=== PATIENT | female | born 1960 | race Caucasian/White ===

== ENCOUNTER → 2018-03-02 09:51 | Outpatient (CLI) | payer MEDICARE, OTHER, SELFPAY ==
[2018-03-02 10:37] LABS: Appearance Urine UA CLEAR; Bilirubin Urine UA NEGATIVE (NEGATIVE); Color Urine UA YELLOW; Glucose Urine UA NEGATIVE (Normal); Ketones Urine UA NEGATIVE (NEGATIVE); Leukocyte Esterase Urine UA NEGATIVE (NEGATIVE); Nitrite Urine UA Negative (Negative); Occult Blood Urine UA NEGATIVE (Negative); Protein Urine UA NEGATIVE (Negative); Urobilinogen Urine UA 0.2 E.U./dL (0.2)
[2018-03-02 13:07] LABS: Add Manual Diff / Slide Review NO; Basophils Percent Auto 1.2 % (0-2); Eosinophils Percent Auto 6.2 % (2-4); Hematocrit 38.5 % (36-46); Hemoglobin 12.4 g/dL (12.0-16.0); Lymphocytes Percent Auto 34.2 % (25-40); Mean Corpuscular HGB Conc 32.2 % (30-36); Mean Corpuscular Hemoglobin 26.5 PG (26-34); Mean Corpuscular Volume 82.1 fL (80-100); Monocytes Percent Auto 6.1 % (3-14); Neutrophils Absolute Auto 4200 /uL (3000-5900); Neutrophils Percent Auto 52.3 % (50-75); Platelet Count 337 X10^3/uL (150-400); Red Cell Distribution Width 14.2 % (11.6-14.8)
[2018-03-02 13:18] LABS: Hemoglobin A1C% w Est Avg Glu 6.1 % (4.0-6.0)
[2018-03-02 13:36] LABS: Alanine Aminotransferase 23 IU/L (9-52); Albumin 4.1 g/dL (3.5-5.0); Albumin Globulin Ratio 1.4 (1.0-2.8); Alkaline Phosphatase 60 U/L (38-126); Aspartate Aminotransferase 19 IU/L (14-36); BUN Creatinine Ratio 22.9 (6-22); Bilirubin Total 0.5 mg/dL (0.2-1.3); Blood Urea Nitrogen 16 mg/dL (7-17); Calcium 9.2 mg/dL (8.4-10.2); Carbon Dioxide 31 mmol/L (22-32); Chloride 97 mmol/L (98-107); Cholesterol 234 mg/dL (140-199); Estimated Glomerular Filt Rate > 60.0 mL/min (>60); Globulin 2.9 g/dL (1.7-4.1); Glucose 86 mg/dL (70-100); HDL Cholesterol 40 mg/dL (40-60); HEMOLYSIS < 15 (0-50); LDL Cholesterol Calculated 136 mg/dL (<100); Potassium 3.7 mmol/L (3.4-5.1); Sodium 138 mmol/L (137-145); Triglycerides 288 mg/dL (35-150)
== END ==
PROVIDERS: PCP Family Medicine; Visit Provider Nurse Practitioner Family
DX: E66.01 Morbid (severe) obesity due to excess calories (principal); I10 Essential (primary) hypertension; N39.0 Urinary tract infection, site not specified; R00.2 Palpitations; R07.89 Other chest pain
CPT/HCPCS: 36415; 80053; 80061; 81003; 83036; 84443; 85025

== ENCOUNTER 2018-03-03 12:54 | Emergency (ER) | payer MEDICARE, OTHER, SELFPAY ==
--- NOTE | 2018-03-03 13:00 | DI.RAD.S_ITS ---
PROCEDURE: XR CHEST 1V INDICATIONS: chest pain TECHNIQUE: One view of the chest was acquired. COMPARISON: [facility], , CHEST 2 VIEW, 12/14/2015, 15:22. FINDINGS: Surgical changes and devices: None. Lungs and pleura: No pleural effusions or pneumothorax. Lungs are clear. Mediastinum: Mediastinal contours appear normal. Heart size is normal. Bones and chest wall: No suspicious bony lesions. Bilateral degenerative a.c. joint disease. Overlying soft tissues appear unremarkable. IMPRESSION: Normal low volume exam Dictated by: Rohan Fernández M.D. on 03/03/2018 at 13:31 Approved by: Rohan Fernández M.D. on 03/03/2018 at 13:32
[2018-03-03 13:03] VITALS: BP 141/73; PULSE 88; RESP 17; TEMP 36.6; O2SAT 97
[2018-03-03 13:16] LABS: Add Manual Diff / Slide Review NO; Basophils Percent Auto 1.2 % (0-2); Eosinophils Percent Auto 4.7 % (2-4); Hematocrit 38.2 % (36-46); Hemoglobin 12.7 g/dL (12.0-16.0); Lymphocytes Percent Auto 31.2 % (25-40); Mean Corpuscular HGB Conc 33.3 % (30-36); Mean Corpuscular Hemoglobin 27.3 PG (26-34); Mean Corpuscular Volume 82.1 fL (80-100); Monocytes Percent Auto 3.3 % (3-14); Neutrophils Absolute Auto 5000 /uL (3000-5900); Neutrophils Percent Auto 59.6 % (50-75); Platelet Count 354 X10^3/uL (150-400); Red Blood Cell Count 4.65 X10^6/uL (4.0-5.2); Red Cell Distribution Width 14.1 % (11.6-14.8); White Blood Cell Count 8.5 X10^3/uL (4.5-11.0)
--- NOTE | 2018-03-03 13:16 | PC.NURSE ---
chest pressure, began today during appt for halter monitor r/t episodes of rapid heart rate, reports chest pressure was bad for approx 10 min, at time of exam pt states very very little chest pressure, normal sinus on monitor, also reports headache today that began prior to chest pain, nausea, denies numbness/tingling/trauma/cough/coa or other illness
[2018-03-03 13:29] LABS: Alanine Aminotransferase 20 IU/L (9-52); Albumin 4.4 g/dL (3.5-5.0); Albumin Globulin Ratio 1.6 (1.0-2.8); Alkaline Phosphatase 60 U/L (38-126); Aspartate Aminotransferase 21 IU/L (14-36); BUN Creatinine Ratio 22.9 (6-22); Bilirubin Total 0.4 mg/dL (0.2-1.3); Blood Urea Nitrogen 16 mg/dL (7-17); Calcium 9.3 mg/dL (8.4-10.2); Carbon Dioxide 28 mmol/L (22-32); Chloride 100 mmol/L (98-107); Creatine Kinase 44 U/L (30-135); Estimated Glomerular Filt Rate > 60.0 mL/min (>60); Globulin 2.8 g/dL (1.7-4.1); Glucose 154 mg/dL (70-100); HEMOLYSIS < 15 (0-50); Lipase 39 U/L (23-300); Potassium 3.9 mmol/L (3.4-5.1); Sodium 139 mmol/L (137-145); Total Protein 7.2 g/dL (6.3-8.2)
[2018-03-03 13:40] LABS: Troponin I < 0.012 ng/mL (0.01-0.034)
[2018-03-03 13:50] LABS: D Dimer < 200 ng/mL (<230)
--- NOTE | 2018-03-03 14:53 | ED.HA ---
HPI - Headache General Chief Complaint: Chest Pain Stated Complaint: CHEST PAIN AND HEAD ACHES Time Seen by Provider: 03/03/18 13:26 Source: patient Mode of arrival: ambulatory Limitations: no limitations History of Present Illness HPI Narrative: Patient states she has had a headache for about the past 2 days. She states in some ways this is similar to her migraine headaches, except the pain goes straight down through the top of her head to her neck. However she has been able to move her neck without difficulty. Patient denies fevers or chills. She states she has been nauseated and vomiting as is typical for her when she has a migraine. Patient denies head trauma recently. She states normally she takes Excedrin and drinks a Coca Cola, and this helps her headaches, but it has not helped this time. MD Complaint: headache Onset (ago): day(s) (2) Onset description: gradual Location: other (Global) Severity: moderate Severity scale (1-10): 6 Quality: throbbing, constant, similar to previous headaches and different than previous headaches Relieving factors: nothing Exacerbating factors: light Context: occurred at rest Associated symptoms: nausea, vomiting and other (No neck stiffness or fever. Patient does state that her lupus was acting up a couple of weeks ago, and she had a fever at that time, but this is resolved some days ago.) Treatments prior to arrival: acetaminophen Related Data Home Medications Medication Instructions Recorded Confirmed etanercept [Enbrel] 50 mg SC QWK #0 12/30/11 03/02/18 Previous Rx's Medication Instructions Recorded hydrochlorothiazide 25 mg PO QDAY #90 tab 07/28/17 Lancets 0 dev SEE INSTRUCTIONS #100 07/30/17 albuterol sulfate [Ventolin HFA] 0 INH Q4H #8 gm 07/30/17 esomeprazole magnesium [Nexium] 40 mg PO QDAY@0600 #90 cap 07/30/17 metformin 1,000 mg PO BID #180 tab 07/30/17 Disabled Parking Permit ea #1 08/07/17 metoprolol succinate 50 mg PO BID #180 tab 09/15/17 Glucose: Test Strips 0 str SEE INSTRUCTIONS #100 str 09/17/17 ibuprofen 600 mg PO TID #90 tab 09/25/17 loratadine [Claritin] 10 mg PO QDAY #90 tab 09/25/17 citalopram 20 mg PO QDAY #90 tab 10/07/17 clobetasol 0.05 % TOPICAL QWEEK #50 ml 10/07/17 duloxetine [Cymbalta] 90 mg PO QDAY #270 cap 10/07/17 estradiol [Vagifem] 10 mcg VG SEE INSTRUCTIONS #20 tab 10/16/17 cyclobenzaprine 0 PO TID #45 tab 11/11/17 hydrocodone 5 mg-acetaminophen 325 See Label Instructions PO Q6HP PRN 12/22/17 mg tablet #60 tab gabapentin 300 mg capsule 300 mg PO TID #90 cap 01/28/18 topiramate 25 mg PO QDAY #60 tab 01/28/18 VITAMIN D (Vitamin D2) 50,000 units PO QWEEK #8 cap 02/03/18 CPAP Supplies #1 ea 02/11/18 Allergies Allergy/AdvReac Type Severity Reaction Status Date / Time codeine [CODEINE] Allergy Mild Rash Unverified 03/02/18 09:05 CAT SCAN DYE Allergy Severe ANAPHYLAXIS, Uncoded 03/02/18 09:05 OK IF BENADRYL FIRST Pain Contract Allergy Unknown Uncoded 03/02/18 09:05 Review of Systems Review of Systems All systems reviewed & are unremarkable except as noted in HPI and below Constitutional Denies chills, Denies fever(s), Denies lethargy and Denies weakness Eyes Denies change in vision, Denies eye discharge, Denies irritation and Denies loss of vision ENT Ears, Nose, Mouth, and Throat: Denies change in voice, Denies neck pain and Denies sore throat Cardiovascular Denies chest pain, Denies irregular heart rhythm, Denies lightheadedness, Denies palpitations, Denies dyspnea, Denies dyspnea on exertion and Denies orthopnea Respiratory Denies cough, Denies dyspnea, Denies dyspnea on exertion and Denies wheezing Gastrointestinal Gastrointestinal: Denies abdominal pain, Denies change in bowel habits, Denies diarrhea, Denies nausea and Denies vomiting Genitourinary Denies hematuria, Denies flank pain, Denies urinary incontinence and Denies urinary urgency Musculoskeletal Denies neck pain Integumentary/Breasts Denies pruritus, Denies erythema, Denies rash and Denies wounds Neurologic Reports system reviewed and no additional complaints, except as docu, Denies confusion, Denies loss of vision and Denies weakness Comments: Psychiatric Denies anxiety, Denies confusion, Denies depression, Denies homicidal ideation and Denies suicidal ideation Endocrine Denies palpitations Hematologic/Lymphatic Denies easy bruising Allergic/Immunologic Denies wheezing PFSH Social History Smoking Status: Former smoker Exam Initial Vital Signs Initial Vital Signs: Vital Signs Temperature 97.8 F 03/03/18 13:03 Pulse Rate 88 03/03/18 13:03 Respiratory Rate 17 03/03/18 13:03 Blood Pressure 141/73 H 03/03/18 13:03 Pulse Oximetry 97 03/03/18 13:03 Const General: cooperative and well developed Nutritional Appearance: well nourished Orientation: alert, awake, oriented x3 and not confused HENMT Head: normocephalic and atraumatic Ears: external ears normal and TM's normal bilaterally Nose: external nose normal and No nasal discharge Face and sinus: sinuses nontender, face symmetric, no sinus tenderness and No dry mucous membranes Mouth: oral mucosae normal and moist mucous membranes Teeth and gingiva: dentition normal Throat: tonsils normal and uvula midline Eyes General: appearance normal, both eyes and all related structures Eyelids: eyelids normal Conjunctivae: conjunctivae normal Sclera: sclerae normal Pupils: PERRL EOM: EOM intact bilaterally Neck Neck: normal visual inspection, trachea midline, No lymphadenopathy, No midline deformity and No JVD Lymphatic: No lymphedema Other: Patient moves her neck without difficulty through full range of motion. Chest Chest: normal inspection of the chest Resp Effort & Inspection: normal respiratory effort, able to speak in complete sentences, no respiratory distress and no use of accessory muscles Auscultation: clear to auscultation bilaterally, no rales, no rhonchi and no wheezes Cardio Rate: regular rate Rhythm: regular rhythm Heart Sounds: no click, no gallops, no murmurs and no rubs Pulses: normal peripheral pulses GI Inspection: non-distended Palpation: soft, no hepatosplenomegaly, No guarding, No pulsatile mass and No tender Auscultation: normal bowel sounds Back/Spine/Pelvis Back: No CVA tenderness Cervical Spine: cervical ROM normal and No pain with cervical ROM Thoracic/Lumbar Spine: thoracic and lumbar spine normal to inspection Skin General: no rashes or lesions noted, No jaundice and No petechiae Neuro General: alert, oriented x3, gait normal and no focal motor deficits Speech: speech normal Extrem General: full ROM, no clubbing, cyanosis or edema, no pedal edema and no calf tenderness Psych Appearance: well kempt Mental Status: mental status grossly normal Attitude: cooperative Thought Content: normal and suicidality Judgment: judgment good Course Orders Ordered: Discontinued Medications Diphenhydramine HCl (Benadryl) 25 mg IV NOW ONE Stop: 03/03/18 14:58 Last Admin: 03/03/18 15:11 Dose: 25 mg Sodium Chloride (Normal Saline 0.9%) 1,000 mls @ 1,000 mls/hr IV BOLUS ONE Stop: 03/03/18 15:59 Last Infusion: 03/03/18 16:56 Dose: 0 mls/hr Infusion: 03/03/18 15:43 Dose: 1,000 mls/hr Infusion: 03/03/18 15:17 Dose: 0 mls/hr Admin: 03/03/18 15:12 Dose: 1,000 mls/hr Ketorolac Tromethamine (Toradol) 30 mg IV NOW ONE Stop: 03/03/18 14:58 Last Admin: 03/03/18 15:11 Dose: 30 mg Metoclopramide HCl (Reglan) 10 mg IV NOW ONE Stop: 03/03/18 14:58 Last Admin: 03/03/18 15:11 Dose: 10 mg Vital Signs - 8 hr 03/03/18 13:03 Temperature 97.8 F Pulse Rate 88 Respiratory Rate 17 Blood Pressure [Right Arm] 141/73 H Pulse Oximetry 97 MDM - Headache Medical Records Attestation: I reviewed the patient's medical records. Lab Data Attestation: I reviewed the patient's lab results. Result diagrams: 03/03/18 13:09 03/03/18 13:09 Lab Results 03/03/18 03/03/18 03/03/18 Range/Units 13: 13:09 13:09 WBC 8.5 (4.5-11.0) X10^3/uL RBC 4.65 (4.0-5.2) X10^6/uL Hgb 12.7 (12.0-16.0) g/dL Hct 38.2 (36-46) % MCV 82.1 (80-100) fL MCH 27.3 (26-34) PG MCHC 33.3 (30-36) % RDW 14.1 (11.6-14.8) % Plt Count 354 (150-400) X10^3/uL Neut % (Auto) 59.6 (50-75) % Lymph % (Auto) 31.2 (25-40) % [place] % (Auto) 3.3 (3-14) % Eos % (Auto) 4.7 H (2-4) % Baso % (Auto) 1.2 (0-2) % Neut # (Auto) 5000 (7072-0962) /uL D-Dimer < 200 (<230) ng/mL Sodium 139 (137-145) mmol/L Potassium 3.9 (3.4-5.1) mmol/L Chloride 100 (98-107) mmol/L Carbon Dioxide 28 (22-32) mmol/L BUN 16 (7-17) mg/dL Creatinine 0.70 (0.52-1.04) mg/dL Estimated GFR > 60.0 (>60) mL/min BUN/Creatinine Ratio 22.9 H (6-22) Glucose 154 H (70-100) mg/dL Calcium 9.3 (8.4-10.2) mg/dL Total Bilirubin 0.4 (0.2-1.3) mg/dL AST 21 (14-36) IU/L ALT 20 (9-52) IU/L Alkaline Phosphatase 60 (38-126) U/L Total Creatine Kinase 44 (30-135) U/L Troponin I < 0.012 (0.01-0.034) ng/mL Total Protein 7.2 (6.3-8.2) g/dL Albumin 4.4 (3.5-5.0) g/dL Globulin 2.8 (1.7-4.1) g/dL Albumin/Globulin Ratio 1.6 (1.0-2.8) Lipase 39 (23-300) U/L Imaging Data CT scan - head: Attestation: I personally reviewed and interpreted this imaging study as follows: My impression: No acute disease. Radiologist's impression: COMPARISON: Merged With [facility], CT, HEAD WITHOUT CONTRAST, 03/27/2017, 15:18. Merged With [facility], MR, BRAIN W&WO CONTRAST, 07/13/2013, 9:35. Merged With [facility], CT, HEAD WITHOUT CONTRAST, 06/22/2013, 10:11. Merged With [facility], MR, BRAIN W&WO CONTRAST, 03/12/2012, 10:59. FINDINGS: Image quality: Excellent. CSF spaces: Basal cisterns are patent. No extra-axial fluid collections. Ventricles are normal in size and shape. Brain: No midline shift. No intracranial masses or hemorrhage. Posey-white matter interface is normal. Skull and face: Calvarium and visualized facial bones are intact, without suspicious lesions. Sinuses: Visualized sinuses and mastoids are clear. IMPRESSION: No acute intracranial disease process. Dictated by: Malgorzata Evans MD, PhD on 03/03/2018 at 14:29 Approved by: Malgorzata Evans MD, PhD on 03/03/2018 at 14:31 Chest x-ray: Attestation: I personally reviewed and interpreted this imaging study as follows: My impression: Negative Radiologist's impression: PROCEDURE: XR CHEST 1V INDICATIONS: chest pain TECHNIQUE: One view of the chest was acquired. COMPARISON: Merged With [facility], , CHEST 2 VIEW, 12/14/2015, 15:22. FINDINGS: Surgical changes and devices: None. Lungs and pleura: No pleural effusions or pneumothorax. Lungs are clear. Mediastinum: Mediastinal contours appear normal. Heart size is normal. Bones and chest wall: No suspicious bony lesions. Bilateral degenerative a.c. joint disease. Overlying soft tissues appear unremarkable. IMPRESSION: Normal low volume exam Dictated by: Rohan Fernández M.D. on 03/03/2018 at 13:31 Approved by: Rohan Fernández M.D. on 03/03/2018 at 13:32 ECG Data Attestation: I personally reviewed and interpreted this ECG as follows: Prior ECG tracings: not available for review Interpretation: Twelve lead EKG performed as follows: Date and time March 03, 2018 at 1:01 p.m. Regular ventricular rhythm with a rate of 84 beats per minute SD Interval 168 milliseconds QRS duration 94 millisecond QTC interval 425 milliseconds [place] normal Nonspecific T-wave abnormality Interpretation: Normal sinus rhythm with nonspecific T-wave abnormality MDM Narrative Medical decision making narrative: The patient remained stable throughout her stay in the emergency department. Workup was negative, and patient was found to be feeling better after symptomatic treatment. The patient was deemed stable for discharge home. We have discussed the usual indications for return. Discharge Plan Departure Patient Disposition: Home, Self-Care Clinical Impression: Migraine headache Discharge Date/Time: 03/03/18 17:35 Interventions: ED Discharge Assessment Last Done: 03/03/18 17:35 Instructions: DI for Migraine Activity Restrictions/Additional Instructions: Your head CT looks good. There is no evidence of any abnormality in your brain. You are most likely experiencing a migraine variant. Prescriptions: No Action etanercept [Enbrel] 50 MG/1 ML syringe 50 mg SC QWK Qty: 0 RF: 0 hydrochlorothiazide 25 MG tablet 25 mg PO QDAY Qty: 90 RF: 2 metformin 1,000 MG tablet 1,000 mg PO BID Qty: 180 RF: 3 esomeprazole magnesium [Nexium] 40 MG capsule,delayed release(DR/EC) 40 mg PO QDAY@0600 Qty: 90 RF: 2 albuterol sulfate [Ventolin HFA] 90 MCG/PUFF HFA aerosol inhaler INH Q4H Qty: 8 RF: 1 Lancets SEE INSTRUCTIONS Qty: 100 RF: PRN Disabled Parking Permit Qty: 1 RF: 0 metoprolol succinate 50 MG tablet extended release 24 hr 50 mg PO BID Qty: 180 RF: 3 Glucose: Test Strips SEE INSTRUCTIONS Qty: 100 RF: PRN ibuprofen 600 MG tablet 600 mg PO TID Qty: 90 RF: 2 loratadine [Claritin] 10 MG tablet 10 mg PO QDAY Qty: 90 RF: 3 citalopram 20 MG tablet 20 mg PO QDAY Qty: 90 RF: 3 duloxetine [Cymbalta] 30 MG capsule,delayed release(DR/EC) 90 mg PO QDAY Qty: 270 RF: 3 clobetasol 0.05 % solution 0.05 % Topical QWEEK Qty: 50 RF: 3 estradiol [Vagifem] 10 MCG tablet 10 mcg VG SEE INSTRUCTIONS Qty: 20 RF: 3 cyclobenzaprine 5 MG tablet PO TID Qty: 45 RF: 0 hydrocodone-acetaminophen 5-325 mg tablet See Label Instructions PO Q6HP PRN (Reason: pain) Qty: 60 RF: 0 gabapentin [Neurontin] 300 mg capsule 300 mg PO TID Qty: 90 RF: 0 topiramate 25 mg tablet 25 mg PO QDAY Qty: 60 RF: 0 VITAMIN D (Vitamin D2) 50,000 units PO QWEEK Qty: 8 RF: 3 CPAP Supplies Qty: 1 RF: 3 Referrals: Shadia Maguire DO [Primary Care Provider] - (Please follow up as needed with your primary care physician.)
--- NOTE | 2018-03-03 15:00 | DI.CT.S_ITS ---
PROCEDURE: CT HEAD/BRAIN WO CON INDICATIONS: headache TECHNIQUE: Noncontrast 4.5 mm thick angled axial sections acquired from the foramen magnum to the vertex, with coronal and sagittal reformats. For radiation dose reduction, the following was used: automated exposure control, adjustment of mA and/or kV according to patient size. COMPARISON: [facility], CT, HEAD WITHOUT CONTRAST, 03/27/2017, 15:18. [facility], MR, BRAIN W&WO CONTRAST, 07/13/2013, 9:35. [facility], CT, HEAD WITHOUT CONTRAST, 06/22/2013, 10:11. [facility], MR, BRAIN W&WO CONTRAST, 03/12/2012, 10:59. FINDINGS: Image quality: Excellent. CSF spaces: Basal cisterns are patent. No extra-axial fluid collections. Ventricles are normal in size and shape. Brain: No midline shift. No intracranial masses or hemorrhage. [place]-white matter interface is normal. Skull and face: Calvarium and visualized facial bones are intact, without suspicious lesions. Sinuses: Visualized sinuses and mastoids are clear. IMPRESSION: No acute intracranial disease process. Dictated by: Malgorzata Evans MD, PhD on 03/03/2018 at 14:29 Approved by: Malgorzata Evans MD, PhD on 03/03/2018 at 14:31
[2018-03-03] MEDS: diphenhydrAMINE 50 MG/ML VIAL 25 MG IV (15:11)
[2018-03-03] MEDS: METOCLOPRAMIDE 10 MG/2 ML INJ IV (15:11)
[2018-03-03] MEDS: KETOROLAC 60 MG/2 ML VIAL 30 MG IV (15:11)
[2018-03-03] MEDS: SODIUM CHLORIDE 0.9% 1,000 ML 1000 ML IV (15:12)
[2018-03-03 15:37] VITALS: BP 136/71; PULSE 74; RESP 18; O2SAT 97
[2018-03-03 17:12] VITALS: BP 110/60; PULSE 78; RESP 18; O2SAT 98
== END 2018-03-03 17:35 | disposition home or self-care (01) ==
PROVIDERS: Emergency Provider Emergency Medicine; Family Provider Family Medicine; PCP Family Medicine
DX: G43.909 Migraine, unspecified, not intractable, without status migrainosus (principal)
CPT/HCPCS: 36591; 70450; 71045; 80053; 82550; 82553; 83690; 84484; 85025; 85379; 93005; 93010; 96361; 96374; 96375; 99283; 99285; J1200; J1885; J2765

== ENCOUNTER → 2018-04-16 09:08 | Outpatient (CLI) | payer MEDICARE, OTHER, SELFPAY ==
--- NOTE | 2018-04-16 09:15 | DI.RAD.S_ITS ---
PROCEDURE: XR CHEST 2V INDICATIONS: COUGH TECHNIQUE: 2 views of the chest were acquired. COMPARISON: [facility], CHEST 2 VIEW, 12/14/2015, 15:22. [facility], CHEST 2 VIEW, 11/29/2015, 15:13. [facility], CHEST 2 VIEW, 06/15/2015, 11:58. [facility], XR CHEST 1V, 03/03/2018, 13:13. FINDINGS: Surgical changes and devices: Cholecystectomy clips are seen. Lungs and pleura: An incomplete inspiratory result is noted, causing a crowded appearance to the lung markings. No focal infiltrates are seen. No pneumothorax or significant pleural effusions are seen. Mediastinum: Mediastinal contours are normal. Heart size is normal. Bones and chest wall: No suspicious bony abnormalities. Soft tissues appear unremarkable. IMPRESSION: No focal infiltrates are detected. Dictated by: Fredy Young M.D. on 04/16/2018 at 10:24 Approved by: Fredy Young M.D. on 04/16/2018 at 10:25
== END ==
PROVIDERS: Family Provider Family Medicine; PCP Family Medicine; Visit Provider Nurse Practitioner Family
DX: R06.2 Wheezing (principal); R05 Cough
CPT/HCPCS: 71046

== ENCOUNTER → 2018-04-30 15:34 | Outpatient (CLI) | payer MEDICARE, OTHER, SELFPAY ==
[2018-04-30 16:01] LABS: Add Manual Diff / Slide Review NO; Basophils Percent Auto 0.4 % (0-2); Eosinophils Percent Auto 6.3 % (2-4); Hematocrit 39.3 % (36-46); Hemoglobin 12.8 g/dL (12.0-16.0); Lymphocytes Percent Auto 33.3 % (25-40); Mean Corpuscular HGB Conc 32.6 % (30-36); Mean Corpuscular Hemoglobin 26.7 PG (26-34); Mean Corpuscular Volume 81.8 fL (80-100); Monocytes Percent Auto 5.2 % (3-14); Neutrophils Absolute Auto 4700 /uL (3000-5900); Neutrophils Percent Auto 54.8 % (50-75); Platelet Count 377 X10^3/uL (150-400); Red Cell Distribution Width 14.7 % (11.6-14.8); White Blood Cell Count 8.7 X10^3/uL (4.5-11.0)
[2018-04-30 16:48] LABS: Alanine Aminotransferase 25 IU/L (9-52); Albumin 4.4 g/dL (3.5-5.0); Albumin Globulin Ratio 1.7 (1.0-2.8); Alkaline Phosphatase 57 U/L (38-126); Amylase 30 U/L (30-110); Aspartate Aminotransferase 17 IU/L (14-36); BUN Creatinine Ratio 22.9 (6-22); Bilirubin Total 0.3 mg/dL (0.2-1.3); Blood Urea Nitrogen 16 mg/dL (7-17); Calcium 9.7 mg/dL (8.4-10.2); Carbon Dioxide 29 mmol/L (22-32); Chloride 94 mmol/L (98-107); Estimated Glomerular Filt Rate > 60.0 mL/min (>60); Globulin 2.6 g/dL (1.7-4.1); Glucose 112 mg/dL (70-100); HEMOLYSIS < 15 (0-50); Lipase 64 U/L (23-300); Potassium 4.2 mmol/L (3.4-5.1); Sodium 141 mmol/L (137-145)
== END ==
PROVIDERS: PCP Family Medicine; Visit Provider Family Medicine
DX: R10.9 Unspecified abdominal pain (principal)
CPT/HCPCS: 36415; 80053; 82150; 83690; 85025

== ENCOUNTER → 2018-04-30 15:57 | Outpatient (CLI) | payer MEDICARE, OTHER, SELFPAY ==
--- NOTE | 2018-04-30 16:01 | DI.CT.S_ITS ---
PROCEDURE: CT ABDOMEN PELVIS WO CON INDICATIONS: BILATERAL LOWER ABDOMINAL PAIN TECHNIQUE: After the administration of oral contrast, 5 mm thick sections acquired from the diaphragms to the symphysis. 5 mm coronal and sagittal reformats were performed. For radiation dose reduction, the following was used: automated exposure control, adjustment of mA and/or kV according to patient size. COMPARISON: [facility], CT, ABDOMEN/PELVIS WITHOUT CONTRAST, 08/15/2009, 14:31. FINDINGS: Image quality: Excellent. ABDOMEN: Lung bases: Lung bases are clear. Heart size is normal. Solid organs: Liver is normal in size. Diffuse fatty liver infiltration is noted. Gallbladder has been removed. Pancreas is normal in size. Spleen is normal in size. No adrenal nodules. Both kidneys are normal in size, without hydronephrosis or nephrolithiasis. Peritoneum and bowel: Bowel loops demonstrate normal wall thickness and caliber. No free fluid or air. The appendix is normal. No significant sigmoid colon abnormality is seen. There is a moderate amount of stool seen throughout the colon. Nodes and vessels: No retroperitoneal or mesenteric adenopathy by size criteria. Aorta and inferior vena cava are normal in size. Miscellaneous: A mild periumbilical hernia is seen, containing fat. PELVIS: Genitourinary: Bladder wall thickness is normal. This patient is status post hysterectomy. No adnexal masses are seen. Miscellaneous: No inguinal hernias or adenopathy. Bilateral pelvic clips are seen. Bones: No suspicious bony lesions. No vertebral body compression fractures. Degenerative changes are seen throughout, which are most prominent involving the lower lumbar spine. IMPRESSION: There is a moderate amount of stool seen within the colon. Please correlate with an underlying history of constipation. Normal appendix. No sigmoid abnormality is seen. Incidental note is made of: Cholecystectomy Fatty liver infiltration Fat-containing periumbilical hernia Lower lumbar spine degenerative change Note: Case discussed by telephone with Dr. Maguire at 5:26 PM [place] time on April 30, 2018. Dictated by: Fredy Young M.D. on 04/30/2018 at 16:19 Approved by: Fredy Young M.D. on 04/30/2018 at 16:27
== END ==
PROVIDERS: Family Provider Family Medicine; PCP Family Medicine; Visit Provider Family Medicine
DX: R10.30 Lower abdominal pain, unspecified (principal); R30.0 Dysuria
CPT/HCPCS: 36415; 74176; 80053; 82150; 83690; 85025

== ENCOUNTER → 2018-07-02 15:38 | Outpatient (CLI) | payer MEDICARE, OTHER, SELFPAY ==
[2018-07-02 16:26] LABS: Hemoglobin A1C% w Est Avg Glu 6.1 % (4.0-6.0)
== END ==
PROVIDERS: PCP Family Medicine; Visit Provider Family Medicine
DX: E11.9 Type 2 diabetes mellitus without complications (principal)
CPT/HCPCS: 36415; 83036

== ENCOUNTER → 2019-01-05 11:53 | Outpatient (CLI) | payer MEDICARE, OTHER, SELFPAY ==
[2019-01-05 13:47] LABS: Blood Urea Nitrogen 24 mg/dL (7-17); Calcium 9.5 mg/dL (8.4-10.2); Carbon Dioxide 29 mmol/L (22-32); Chloride 97 mmol/L (98-107); Estimated Glomerular Filt Rate > 60.0 mL/min (>60); Glucose 136 mg/dL (70-100); HEMOLYSIS < 15 (0-50); Sodium 137 mmol/L (137-145)
[2019-01-05 14:00] LABS: Hemoglobin A1C% w Est Avg Glu 5.7 % (4.0-6.0)
== END ==
PROVIDERS: Family Provider Family Medicine; PCP Family Medicine; Visit Provider Family Medicine
DX: E11.9 Type 2 diabetes mellitus without complications (principal); I10 Essential (primary) hypertension
CPT/HCPCS: 36415; 80048; 83036

== ENCOUNTER → 2019-01-31 15:34 | Outpatient (CLI) | payer MEDICARE, OTHER, SELFPAY ==
[2019-01-31 17:12] LABS: Blood Urea Nitrogen 14 mg/dL (7-17); Calcium 9.1 mg/dL (8.4-10.2); Carbon Dioxide 26 mmol/L (22-32); Chloride 104 mmol/L (98-107); Estimated Glomerular Filt Rate > 60.0 mL/min (>60); Glucose 103 mg/dL (70-100); HEMOLYSIS < 15 (0-50); Potassium 4.5 mmol/L (3.4-5.1); Sodium 139 mmol/L (137-145)
[2019-01-31 17:29] LABS: Free T3, Triiodothyronine Free 3.04 pg/mL (2.77-5.27); Free T4, Direct Thyroxine 1.05 ng/dL (0.78-2.19)
[2019-01-31 17:44] LABS: Thyroid Stimulating Hormone 0.76 uIU/mL (0.47-4.68)
== END ==
PROVIDERS: PCP Family Medicine; Visit Provider Family Medicine
DX: E11.9 Type 2 diabetes mellitus without complications (principal); I10 Essential (primary) hypertension; R00.2 Palpitations
CPT/HCPCS: 36415; 80048; 84439; 84443; 84481

== ENCOUNTER 2019-06-28 06:31 | Day surgery (SDC) | payer MEDICARE, OTHER, SELFPAY ==
[2019-06-28 08:00] VITALS: BP 147/82; PULSE 76; RESP 15; TEMP 36.1; O2SAT 96; BMI 42.9
[2019-06-28] MEDS: PROPARACAINE 0.5% OPHTH SOL 2 DROPS EYE-OP (08:10)
[2019-06-28] MEDS: CATARACT EYE COMPOUND (10 DROPS/SYRINGE) 3 DROPS EYE-OP (08:13)
--- NOTE | 2019-06-28 08:47 | PM.PREOP ---
Pre-operative Note Interval Note History & Physical reviewed/Exam performed by Physician: No Changes to H&P: No
--- NOTE | 2019-06-28 08:47 | PM.OP.1 ---
Operative Date/Time/Diagnoses Pre-op diagnosis: Nuclear cataract right eye Procedure & Clinicians Procedure: Cataract Surgery Same procedure as scheduled: Yes Surgeon: Salas Funez Anesthesia Type: MAC +/- and Sedation Operative Notes Procedure in detail: Patient brought to the operating suite. Tetracaine drops placed in the right eye. Patient was prepped and draped in sterile manner. Wire lid speculum was placed in the eye. Betadine drops were placed on the eye. This was irrigated. Lidocaine jelly was placed on the eye. A paracentesis port was created with a side-port blade. 0.1 mL 1% preservative free lidocaine was injected into the anterior chamber. The anterior chamber was deepened with viscoelastic. 2.6 mm keratome was used to create a temporal clear corneal incision. Cystotome and Utrata forceps were used to create continuous tear capsulorrhexis. Balanced salt solution was used to hydro dissect the nucleus. The phacoemulsification handpiece was inserted and the nucleus was removed using the stop and chop technique. The irrigation aspiration handpiece was inserted and the remaining cortex was removed. Anterior chamber was deepened with viscoelastic. An Morris ZCB00 intraocular lens with a power of 10.0 was injected into the capsular bag. Irrigation aspiration handpiece was inserted and the remaining viscoelastic was removed. Incision was hydrated with balanced salt solution and found to be leak free with pressure with Weck-Caroline sponges. 0.1 mL Vigamox injected anterior chamber. 0.3 mL Kenalog 10 mg was injected subconjunctivally. Lid speculum was removed. The patient left the operating room in excellent condition. Complications: none Post-operative Condition: stable Disposition: same day surgery
[2019-06-28] MEDS: PHENYLEPHRINE/LIDOCAINE VIAL (OR) 0.2 ML EYE-OP (09:05)
[2019-06-28] MEDS: MOXIFLOXACIN INJ 5 MG/ML VIAL EYE-OP (09:05)
[2019-06-28] MEDS: CHONDROIDTIN/SOD HYALURONATE 1.05 ML SYRINGE INTRAOCULA (09:06)
[2019-06-28] MEDS: LIDOCAINE JELLY 2% 5 ML 1 APPLIC TOP (09:06)
[2019-06-28] MEDS: TETRACAINE 0.5% OPHTH DROPS 4 ML 2 DROPS EYE-OP (09:06)
[2019-06-28] MEDS: BALANCED SALT IRRIG SOLN NO.2 500 ML, EPINEPHrine 1 MG IRR (09:06)
[2019-06-28] MEDS: TRIAMCINOLONE 50 MG/5 ML VIAL INJ (09:06)
[2019-06-28 09:20] VITALS: BP 144/93; PULSE 76; RESP 16; TEMP 36.5; O2SAT 96
[2019-06-28 09:40] VITALS: BP 142/86; PULSE 80; RESP 16; TEMP 36.3; O2SAT 96
== END 2019-06-28 09:41 | disposition home or self-care (01) ==
PROVIDERS: Family Provider Family Medicine; PCP Family Medicine; Visit Provider Ophthalmology
PROC: (CPT 66984; principal; 2019-06-28 08:45)
DX: H25.11 Age-related nuclear cataract, right eye (principal); E11.9 Type 2 diabetes mellitus without complications; I10 Essential (primary) hypertension; G47.30 Sleep apnea, unspecified
CPT/HCPCS: 66984; J0171; J2250; J2704; J3010; J3301

== ENCOUNTER 2019-07-12 06:53 | Day surgery (SDC) | payer MEDICARE, OTHER, SELFPAY ==
[2019-07-12] MEDS: PROPARACAINE 0.5% OPHTH SOL 2 DROPS EYE-OP (07:10)
[2019-07-12 07:14] VITALS: BP 142/83; PULSE 71; RESP 15; TEMP 36.5; O2SAT 97; BMI 42.2
[2019-07-12 07:27] VITALS: BMI 42.2
[2019-07-12] MEDS: CATARACT EYE COMPOUND (10 DROPS/SYRINGE) 3 DROPS EYE-OP (07:28)
--- NOTE | 2019-07-12 07:46 | PM.PREOP ---
Pre-operative Note Interval Note History & Physical reviewed/Exam performed by Physician: No Changes to H&P: No
--- NOTE | 2019-07-12 07:46 | PM.OP.1 ---
Operative Date/Time/Diagnoses Pre-op diagnosis: Nuclear Cataract Left eye Post-op diagnosis: same Procedure & Clinicians Surgeon: Salas Funez Anesthesia Type: MAC +/- and Sedation Operative Notes Procedure in detail: Patient brought to the operating suite. Tetracaine drops placed in the left eye. Patient was prepped and draped in sterile manner. Wire lid speculum was placed in the eye. Betadine drops were placed on the eye. This was irrigated. Lidocaine jelly was placed on the eye. A paracentesis port was created with a side-port blade. 0.1 mL 1% preservative free lidocaine was injected into the anterior chamber. The anterior chamber was deepened with viscoelastic. 2.6 mm keratome was used to create a temporal clear corneal incision. Cystotome and Utrata forceps were used to create continuous tear capsulorrhexis. Balanced salt solution was used to hydro dissect the nucleus. The phacoemulsification handpiece was inserted and the nucleus was removed using the stop and chop technique. The irrigation aspiration handpiece was inserted and the remaining cortex was removed. Anterior chamber was deepened with viscoelastic. An Morris ZCB00 intraocular lens with a power of 8.0 was injected into the capsular bag. Irrigation aspiration handpiece was inserted and the remaining viscoelastic was removed. Incision was hydrated with balanced salt solution and found to be leak free with pressure with Weck-Caroline sponges. 0.1 mL Vigamox injected anterior chamber. 0.3 mL Kenalog 10 mg was injected subconjunctivally. Lid speculum was removed. The patient left the operating room in excellent condition. Complications: none Post-operative Condition: stable Disposition: same day surgery
[2019-07-12] MEDS: MOXIFLOXACIN INJ 5 MG/ML VIAL EYE-OP (07:51)
[2019-07-12] MEDS: LIDOCAINE JELLY 2% 5 ML 1 APPLIC TOP (07:52)
[2019-07-12] MEDS: PHENYLEPHRINE/LIDOCAINE VIAL (OR) 0.2 ML EYE-OP (07:52)
[2019-07-12] MEDS: TRIAMCINOLONE 50 MG/5 ML VIAL INJ (07:52)
[2019-07-12] MEDS: BALANCED SALT IRRIG SOLN NO.2 500 ML, EPINEPHrine 1 MG IRR (07:53)
[2019-07-12] MEDS: CHONDROIDTIN/SOD HYALURONATE 1.05 ML SYRINGE INTRAOCULA (07:53)
[2019-07-12] MEDS: TETRACAINE 0.5% OPHTH DROPS 4 ML 2 DROPS EYE-OP (07:53)
--- NOTE | 2019-07-12 09:19 | SUR.PHASEII ---
Late entry: Pt c/o pain to L eye and stated she had very poor vision. Dr. Funez informed and examined pt. Stated pt was ok to be discharged. Pt. left soon after and left in stable condition.
[2019-07-12 09:22] VITALS: BP 149/85; PULSE 79; RESP 16; TEMP 36.2; O2SAT 96
== END 2019-07-12 08:45 | disposition home or self-care (01) ==
PROVIDERS: Family Provider Family Medicine; PCP Family Medicine; Visit Provider Ophthalmology
PROC: (CPT 66984; principal; 2019-07-12 08:15)
DX: H25.12 Age-related nuclear cataract, left eye (principal); E11.9 Type 2 diabetes mellitus without complications; I10 Essential (primary) hypertension; G47.30 Sleep apnea, unspecified
CPT/HCPCS: 66984; J0171; J2250; J2704; J3010; J3301

== ENCOUNTER 2019-09-04 23:30 | Emergency (ER) | payer MEDICARE, OTHER, SELFPAY ==
[2019-09-04 23:38] VITALS: PULSE 74; RESP 16; TEMP 37; O2SAT 99; BMI 42.9
--- NOTE | 2019-09-05 | DI.CT.S_ITS ---
PROCEDURE: CT HEAD/BRAIN WO CON INDICATIONS: severe dizziness and headache TECHNIQUE: Noncontrast 4.5 mm thick angled axial sections acquired from the foramen magnum to the vertex, with coronal and sagittal reformats. For radiation dose reduction, the following was used: automated exposure control, adjustment of mA and/or kV according to patient size. COMPARISON: None. FINDINGS: Image quality: Excellent. CSF spaces: Basal cisterns are patent. No extra-axial fluid collections. Ventricles are normal in size and shape. Brain: No midline shift. No intracranial masses or hemorrhage. Posey-white matter interface is normal. Skull and face: Calvarium and visualized facial bones are intact, without suspicious lesions. Sinuses: Visualized sinuses and mastoids are clear. IMPRESSION: No acute intracranial disease process. Dictated by: Malgorzata Evans MD, PhD on 09/05/2019 at 7:15 Approved by: Malgorzata Evans MD, PhD on 09/05/2019 at 7:16
[2019-09-05 00:20] VITALS: BP 120/78
--- NOTE | 2019-09-05 01:10 | DI.CT.S_ITS ---
PROCEDURE: CT ANGIO HEAD AND NECK INDICATIONS: severe headache with vertigo TECHNIQUE: Pre-contrast 4.5 mm thick sections acquired from the foramen magnum to the vertex. After the administration of intravenous contrast, 1 mm thick sections acquired from the aortic arch through the [place] of [place]. Post-contrast 4.5 mm thick sections then re-acquired from the foramen magnum to the vertex. 3-dimensional mvswghv-esmyjhzdh-pnuffchggo (MIP) and/or volume rendering reformats were acquired of the central intracranial vasculature and neck separately. COMPARISON: None. FINDINGS: Image quality: Excellent. BRAIN: CSF spaces: Ventricles are normal in size and shape. Basal cisterns are patent. No extra-axial fluid collections. Brain: No midline shift. No intracranial bleeds or masses. Posey-white matter interface appears intact. Skull and face: Calvarium and facial bones appear intact, without suspicious lesions. Orbits appear normal. Sinuses: Mucosal thickening in the maxillary sinuses bilaterally. Postsurgical changes noted in the paranasal sinuses compatible with prior functional endoscopic sinus surgery. The mastoids are clear. HEAD CT ANGIOGRAPHY: Anterior circulation: Intracranial internal carotid arteries are normal in size and flow. The flow within the paired anterior cerebral arteries is normal and symmetric. The flow within the middle cerebral arteries is normal and symmetric. The anterior communicating artery is seen. No aneurysms are seen. Posterior circulation: Visualized portions of the vertebral arteries demonstrate normal caliber, and join to form a normal appearing basilar artery. Flow within the posterior cerebral arteries is normal and symmetric. No aneurysms are seen. Dural sinuses demonstrate normal postcontrast enhancement. NECK CT ANGIOGRAPHY: Carotid system: The great vessels demonstrate a conventional anatomy as they arise from the aortic arch. The origins of the common carotid arteries appear patent. The common carotid arteries demonstrate normal caliber and courses. The bifurcation regions are both widely patent. The internal carotid arteries demonstrate normal calibers and courses. Posterior circulation: Left posterior cerebral artery arises from the aortic arch. Patient is right vertebral artery dominant. The origins of the vertebral arteries both appear widely patent. The more superior extracranial portions of both vertebral arteries also demonstrate normal courses and calibers. 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 They join to form a normal appearing basilar artery. Soft tissues: Visualized neck soft tissues demonstrate no suspicious abnormalities. Bones: No suspicious bony lesions. Visualized cervical spine appears normally aligned. IMPRESSION: 1. No acute intracranial disease process. 2. No large vessel occlusion, vascular stenosis, vascular dissection or aneurysm. Any quantitative measurements of stenosis were performed using NASCET criteria. Dictated by: Malgorzata Evans MD, PhD on 09/05/2019 at 7:51 Approved by: Malgorzata Evans MD, PhD on 09/05/2019 at 7:58
[2019-09-05 02:04] LABS: Add Manual Diff / Slide Review NO; Basophils Absolute Auto 100 /uL (0-100); Eosinophils Absolute Auto 400 /uL (0-450); Eosinophils Percent Auto 5.6 % (2-4); Hematocrit 36.8 % (36-46); Hemoglobin 12.2 g/dL (12.0-16.0); Lymphocytes Absolute Auto 2600 /uL (1100-4500); Lymphocytes Percent Auto 35.2 % (25-40); Mean Corpuscular HGB Conc 33.2 % (30-36); Mean Corpuscular Volume 81.4 fL (80-100); Monocytes Absolute Auto 500 /uL (0-900); Monocytes Percent Auto 7.2 % (3-14); Neutrophils Absolute Auto 3800 /uL (1500-7000); Platelet Count 336 X10^3/uL (150-400); Red Blood Cell Count 4.52 X10^6/uL (4.0-5.2); Red Cell Distribution Width 14.9 % (11.6-14.8); White Blood Cell Count 7.5 X10^3/uL (4.5-11.0)
[2019-09-05 02:15] LABS: Alanine Aminotransferase 14 IU/L (<35); Albumin 4.1 g/dL (3.5-5.0); Albumin Globulin Ratio 1.3 (1.0-2.8); Alkaline Phosphatase 69 U/L (38-126); Aspartate Aminotransferase 18 IU/L (14-36); BUN Creatinine Ratio 21.7 (6-22); Bilirubin Total 0.3 mg/dL (0.2-1.3); Blood Urea Nitrogen 13 mg/dL (7-17); Calcium 8.9 mg/dL (8.4-10.2); Carbon Dioxide 28 mmol/L (22-32); Chloride 104 mmol/L (98-107); Estimated Glomerular Filt Rate > 60.0 mL/min (>60); Globulin 3.1 g/dL (1.7-4.1); Glucose 99 mg/dL (70-100); HEMOLYSIS < 15 (0-50); Potassium 3.5 mmol/L (3.4-5.1); Sodium 142 mmol/L (137-145); Total Protein 7.2 g/dL (6.3-8.2)
[2019-09-05 02:21] LABS: C-Reactive Protein Quant < 0.5 mg/dL (<1.0)
[2019-09-05 02:26] LABS: Erythrocyte Sedimentation Rate 12 MM/HR (0-20)
[2019-09-05] MEDS: METOCLOPRAMIDE 10 MG/2 ML INJ IV (03:22)
[2019-09-05] MEDS: KETOROLAC 60 MG/2 ML VIAL 30 MG IV (03:22)
[2019-09-05] MEDS: methylPREDNISolone 125 MG/2 ML VIAL IV (03:23)
[2019-09-05] MEDS: diphenhydrAMINE 50 MG/ML VIAL 25 MG IV ×2 (03:23)
[2019-09-05] MEDS: MECLIZINE HCL 12.5 MG TABLET 25 MG PO (03:23)
--- NOTE | 2019-09-05 03:58 | ED_ITS ---
HPI - Dizziness General Chief Complaint: Dizziness Stated Complaint: headaches, spinning when she lays down, nausea Time Seen by Provider: 09/05/19 00:48 Mode of arrival: Ambulatory History of Present Illness HPI Narrative: Chief complaint: Headache associated with vertigo. Chief complaint headache with intermittent spinning vertigo. History of present illness: The patient is a 58-year-old female with a history of migraine headaches. The patient stated that on she developed a headache and that she developed spinning dizziness as though she was on a tilt to will. The symptoms persisted so she came into the emergency department to be further evaluated. She has had nausea with vomiting. She denies any fall or injury. The headache is located in the back of her head. The patient has a history of psoriatic arthritis. She also has a history of hypertension and diabetes mellitus but no asthma or COPD. The patient denies smoking cigarettes. The patient states that often her headaches are located on the right side of her head. And periodically she has an aura of scintillations and flashing lights. This headache came on gradually and was not like her typical headache. She has chronic numbness tingling paresthesias in her hands which has been attributed to her psoriatic arthritis. The patient claims to have central sleep apnea. She denies any change in her vision loss of vision scotomata or diplopia. She denies any ataxia or clumsiness. She just states that changing her head position causes her dizziness to get worse. The discomfort is a dull achy pain. Sometimes it is throbbing. She denies any chest pain cough short ness of breath palpitations irregular heartbeat. She has been intensely nauseous with vomiting but has had no diarrhea no incontinence of urine or stool. Related Data Home Medications Medication Instructions Recorded Confirmed Enbrel 50 mg SC QWK #0 12/30/11 07/21/19 Respironics Dreamstation CPAP #1 ea 02/07/19 07/21/19 cyclobenzaprine 5 mg PO TID PRN 07/12/19 07/21/19 loratadine [Claritin] 10 mg PO QDAY PRN 07/12/19 07/21/19 Previous Rx's Medication Instructions Recorded Lancets 0 dev SEE INSTRUCTIONS #100 07/30/17 Disabled Parking Permit ea #1 08/07/17 Glucose: Test Strips 0 str SEE INSTRUCTIONS #100 str 09/17/17 CPAP Supplies #1 ea 02/11/18 VITAMIN D (Vitamin D2) 50,000 units PO QWEEK #8 cap 07/15/18 cpap & Supplies #1 ea 12/03/18 albuterol sulfate 90 mcg/actuation 1 inhalation INHALATION Q4H #8 gram 02/21/19 aerosol inhaler duloxetine 30 mg capsule,delayed 60 mg PO QDAY #180 cap 02/21/19 release esomeprazole magnesium 40 mg 40 mg PO QDAY@0600 #90 cap 02/21/19 capsule,delayed release gabapentin 100 mg capsule 100 mg PO TID #270 cap 02/21/19 hydrocodone 5 mg-acetaminophen 325 See Rx Instructions PO Q6HP PRN 02/21/19 mg tablet #120 tab ibuprofen 600 mg tablet 600 mg PO TID #270 tab 02/21/19 metformin 1,000 mg tablet 1,000 mg PO BID #180 tab 02/21/19 metoprolol succinate 50 mg 50 mg PO BID #180 tab 02/21/19 tablet,extended release 24 hr nitroglycerin 0.3 mg sublingual 0.3 mg SL Q5-15M PRN #30 tab 04/05/19 tablet clobetasol 0.05 % scalp solution 0.05 % TOPICAL QWEEK #50 ml 06/30/19 lisinopril 2.5 mg tablet 2.5 mg PO DAILY #90 tab 07/01/19 rizatriptan 5 mg disintegrating 5 mg PO ONCE PRN #10 tab 07/21/19 tablet citalopram 20 mg tablet 40 mg PO QDAY #60 tab 08/29/19 topiramate 25 mg tablet 25 mg PO QDAY #30 tab 08/29/19 meclizine 25 mg PO TID PRN #15 tab 09/05/19 naproxen [Naprosyn] 500 mg PO BID PRN #20 tab 09/05/19 prochlorperazine maleate 10 mg PO Q6H PRN #15 tab 09/05/19 [Compazine] Allergies Allergy/AdvReac Type Severity Reaction Status Date / Time codeine [CODEINE] Allergy Mild Rash Verified 09/04/19 23:44 CAT SCAN DYE Allergy Severe ANAPHYLAXIS, Uncoded 09/04/19 23:44 OK IF BENADRYL FIRST Pain Contract Allergy Unknown Uncoded 07/21/19 09:55 Review of Systems Review of Systems Narrative: The patient's review of systems were negative except for those mentioned history of present illness. Patient History Medical History Fibromyalgia (Chronic) Hyperlipidemia (Chronic) Hypertension (Chronic) Lupus (Chronic) Morbid obesity (Chronic) Retinal tear (Resolved 2014) Rheumatoid arthritis (Chronic) Surgical History History of ankle surgery (Resolved) History of bilateral salpingo-oophorectomy (BSO) (Resolved) History of knee replacement (Resolved) History of sinus surgery (Resolved) S/P skin biopsy (Resolved) Status post cholecystectomy (Resolved) Status post colonoscopy (Resolved 09/29/07) Status post hernia repair (Resolved) Status post hysterectomy (Resolved) Social History household members: spouse Smoking Status: Never smoker Smoking Status: Never smoker Substance Use Type: does not use Exam Narrative Exam Narrative: PHYSICAL EXAM: CONSTITUTIONAL: Awake, Alert, Oriented, Coherent, Cooperative who is anxious and does not appear ill or toxic. The patient moves very slowly. HEAD: AT/NC. The patient's posterior nuchal ridge is tender to palpation and is the location of her headache and is similar to the discomfort she describes. She is tender to palpation over the upper midline cervical scar and upper right greater than left facet joints approximately C4 to see 1 with bilateral paraspinous muscle tenderness and mild spasm. EENT: PERRL, FROM of eyes, no discharge, no nystagmus, no dysconjugate gaze. No drainage from the ears, Tympanic membranes intact bilaterally, clear EAC No epistaxis or nasal drainage Oral mucosa is moist and pink, posterior pharynx is without erythema or exudate. NECK: Supple, no obvious JVD, Trachea is midline without stridor, no palpable LN or masses, no bruits. SPINE: No gross deformity, no palpable thoracic, lumbar or sacral spine tenderness. Cervical spine tenderness as noted above. No CVA tenderness. THORAX: No deformity, retractions, chest wall tenderness, subcutaneous air or crepitice. LUNGS: Clear with symmetrical breath sounds without respiratory distress HEART: Normal heart tones, regular rhythm and rate without murmur. ABDOMEN: Soft, non-tender, normal bowel sounds without guarding, rebound, rigidity or palpable mass. EXTREMITIES: No edema, cyanosis, deformity or tenderness. SKIN: No rash, bruising, petechiae or purpura. NEURO: Awake, alert, oriented, conversive, cranial nerves II-XII are symmetrical and normal, moves all 4 extremities. After medication and resolution of her headache and vertigo the patient had a normal gait walking to the bathroom without ataxia. Visual bustillos were intact. There was no nystagmus or dysconjugate gaze. The patient's finger to nose test was within normal limits without any dysmetria. Rapid alternating motions with opposition of her fingers to her thumb simultaneously bilaterally was intact. [id number] was within normal limits. The patient had no drift of her arms. The patient had no weakness or drift in her legs. Deep tendon reflexes were 1+ and symmetrical. Sensation was symmetrical. Initial Vital Signs Initial Vital Signs: Vital Signs Temperature 98.6 F 09/04/19 23:38 Pulse Rate 74 09/04/19 23:38 Respiratory Rate 16 09/04/19 23:38 Pulse Oximetry 99 09/04/19 23:38 Course Course Course Narrative: [address] report of the patient's head noncontrast revealed no acute intracranial pathology or hemorrhage. The report for the patient's results of the CT angiogram of her head and neck remain pending at this time. 0452 the patient reports that she has an allergy to iodine and questionable radiological contrast. This reaction was over 30 years ago. The patient was administered Solu-Medrol 125 mg and 50 mg mg of Benadry. Radiology wanted to wait 1 hour after the administration of these medicines to perform the CT angiogram of the head and neck. The patient just returned from Radiology. The patient states that her headache is significantly improved as well as her rajinder tigo but it has not completely resolved. She states that the vertigo and spinning dizziness occurs primarily when she changes her head position. However, she has no other neurological symptoms. We are awaiting the patient's results of the CT angiograms. l 0558: CTA of the neck revealed unremarkable apices of the lung. The aortic arch is unremarkable. Major vessels are patent. The common internal and external carotid arteries are symmetrical and unremarkable. The vertebral arteries are patent and relatively symmetric. Vessel origins are grossly unremarkable. No soft tissue lesions of the neck is appreciated. CTA of the head revealed major cerebral arterial structures are patent. The internal carotid arteries are patent through the carotid termini bilaterally. A1 segment of the right anterior cerebral artery is slightly hypoplastic a normal variant. The anterior cerebral arteries are otherwise unremarkable. The communicating artery is well visualized. The MCAs are symmetrical and unremarkable. Right vertebral artery is dominant. Both contribute to the basilar. The basilar artery is normal appearing. There is origin of the right posterior cerebral artery from the ICA, a normal variant, without visualization of the P1 segment on the right side. The left posterior cerebral is unremarkable. The communicating artery is patent. No aneurysm or vascular malformation is appreciated. The concluding impression is that there is no significant vessel narrowing, dissection, or occlusion. 08:11 her headache has almost completely resolved. The patient's dizziness has completely resolved. She sat up in her bed and ambulated to the bathroom without ataxia or vertigo. I discussed with the patient that this may be a migraine variant. The patient stated that she became concerned and alarmed when she developed vertigo. I informed her that the vertigo may be related to her middle ear, may be caused by a migraine variant or another central cause. She was advised to take her Maxalt at home. If that does not help her with her headache she can take Naprosyn 500 mg twice a day and Compazine 10 mg 3 times a day for nausea and vomiting. She was also informed that she can take Benadryl 25 mg every 6 hours. For the actual vertigo she can take Antivert 25 mg 3 times a day. If her symptoms come and are uncontrolled uncontrolled or worse she needs to to return to the emergency department. Orders Ordered: Discontinued Medications Diphenhydramine HCl (Benadryl) 25 mg IV NOW ONE Stop: 09/05/19 01:11 Last Admin: 09/05/19 03:23 Dose: 25 mg Documented by: ISIDORO Diphenhydramine HCl (Benadryl) 25 mg IV NOW ONE Stop: 09/05/19 01:50 Last Admin: 09/05/19 03:23 Dose: 25 mg Documented by: ISIDORO Ketorolac Tromethamine (Toradol) 30 mg IV NOW ONE Stop: 09/05/19 01:11 Last Admin: 09/05/19 03:22 Dose: 30 mg Documented by: ISIDORO Meclizine HCl (Antivert) 25 mg PO NOW ONE Stop: 09/05/19 01:11 Last Admin: 09/05/19 03:23 Dose: 25 mg Documented by: ISIDORO Methylprednisolone (Solu-Medrol 125 Mg Vial) 125 mg IV NOW ONE Stop: 09/05/19 01:11 Last Admin: 09/05/19 03:23 Dose: 125 mg Documented by: ISIDORO Metoclopramide HCl (Reglan) 10 mg IV NOW ONE Stop: 09/05/19 01:11 Last Admin: 09/05/19 03:22 Dose: 10 mg Documented by: ISIDORO Ondansetron HCl (Zofran) 4 mg IV NOW ONE Stop: 09/05/19 01:50 Vital Signs Vital signs: Vital Signs - 8 hr 09/05/19 05:39 Pulse Rate 71 Respiratory Rate 17 Blood Pressure [Right Arm] 178/85 H Pulse Oximetry 97 MDM - Dizziness Lab Data Result diagrams: 09/05/19 01:59 09/05/19 01:59 Labs: Lab Results 09/05/19 09/05/19 09/05/19 Range/Units 01:59 01:59 01:59 WBC 7.5 (4.5-11.0) X10^3/uL RBC 4.52 (4.0-5.2) X10^6/uL Hgb 12.2 (12.0-16.0) g/dL Hct 36.8 (36-46) % MCV 81.4 (80-100) fL MCH 27.0 (26-34) PG MCHC 33.2 (30-36) % RDW 14.9 H (11.6-14.8) % Plt Count 336 (150-400) X10^3/uL Neut % (Auto) 51.0 (50-75) % Lymph % (Auto) 35.2 (25-40) % [place] % (Auto) 7.2 (3-14) % Eos % (Auto) 5.6 H (2-4) % Baso % (Auto) 1.0 (0-2) % Neut # (Auto) 3800 (1419-2035) /uL Lymph # (Auto) 2600 (2983-0312) /uL [place] # (Auto) 500 (0-900) /uL Eos # (Auto) 400 (0-450) /uL Baso # (Auto) 100 (0-100) /uL ESR 12 (0-20) MM/HR Sodium 142 (137-145) mmol/L Potassium 3.5 (3.4-5.1) mmol/L Chloride 104 (98-107) mmol/L Carbon Dioxide 28 (22-32) mmol/L BUN 13 (7-17) mg/dL Creatinine 0.60 (0.52-1.04) mg/dL Estimated GFR > 60.0 (>60) mL/min BUN/Creatinine Ratio 21.7 (6-22) Glucose 99 (70-100) mg/dL Calcium 8.9 (8.4-10.2) mg/dL Total Bilirubin 0.3 (0.2-1.3) mg/dL AST 18 (14-36) IU/L ALT 14 (<35) IU/L Alkaline Phosphatase 69 (38-126) U/L C-Reactive Protein < 0.5 (<1.0) mg/dL Total Protein 7.2 (6.3-8.2) g/dL Albumin 4.1 (3.5-5.0) g/dL Globulin 3.1 (1.7-4.1) g/dL Albumin/Globulin Ratio 1.3 (1.0-2.8) Urine Dip Bedside Urine Glucose Negative Bedside Urine Bilirubin - Negative Bedside Urine Ketone - Negative Urine Specific [place] 1.010 Bedside Urine Occult Blood - Negative Bedside Urine pH 6.5 Bedside Urine Protein - Negative Bedside Urine Urobilinogen - Negative Bedside Urine Nitrite - Negative Bedside Urine Leukocytes - Negative Esterase Discharge Plan Departure Patient Disposition: Home Clinical Impression: Vertigo Migraine Qualifiers: Migraine type: unspecified Status migrainosus presence: without status migrainosus Intractability: not intractable Qualified Code(s): G43.909 - Migra ine, unspecified, not intractable, without status migrainosus Discharge Date/Time: 09/05/19 09:11 Instructions: DI for Migraine, DI for Vertigo, DI for Dizziness-Nonvertigo Activity Restrictions/Additional Instructions: 1. Follow-up with your primary care physician. 2. Your CT scan of your brain as well as the CT angiogram of your brain and neck were all normal and negative for any acute pathology. 3. On the Internet/You tube look up [place]-Hall[place] and Alexys maneuvers for peripheral vertigo 4. Take her Maxalt when you developed headache. 5. Keep a diary of your headaches and the surrounding symptoms and or and how long the headaches last and what relieves them. 6. If the Maxalt does not raise leave your headache try Naprosyn 500 mg twice a day. 7. Use Antivert 25 mg 3 times a day for your spinning dizziness/vertigo 8. For your headaches with nausea and vomiting you can take Compazine 10 mg 3 times a day or Benadryl 25 mg every 6 hours. 9 return to the emergency department if there is any other serious conditions. Prescriptions: New naproxen [Naprosyn] 500 mg tablet 500 mg PO BID PRN (Reason: pain) Qty: 20 RF: 0 prochlorperazine maleate [Compazine] 10 mg tablet 10 mg PO Q6H PRN (Reason: nausea and vomiting) Qty: 15 RF: 0 meclizine 25 mg tablet 25 mg PO TID PRN (Reason: dizziness) Qty: 15 RF: 0 No Action Enbrel 50 MG/1 ML syringe 50 mg SC QWK Qty: 0 RF: 0 Lancets 0 dev SEE INSTRUCTIONS Qty: 100 RF: PRN Disabled Parking Permit Qty: 1 RF: 0 Glucose: Test Strips 0 str SEE INSTRUCTIONS Qty: 100 RF: PRN (DME) CPAP Supplies Qty: 1 RF: 3 VITAMIN D (Vitamin D2) 50,000 units PO QWEEK Qty: 8 RF: 3 (DME) cpap & Supplies Qty: 1 RF: 0 (DME) Respironics Dreamstation CPAP Qty: 1 RF: 0 duloxetine [Cymbalta] 30 mg capsule,delayed release(DR/EC) 60 mg PO QDAY Qty: 180 RF: 1 esomeprazole magnesium [Nexium] 40 mg capsule,delayed release(DR/EC) 40 mg PO QDAY@0600 Qty: 90 RF: 1 gabapentin 100 mg capsule 100 mg PO TID Qty: 270 RF: 1 hydrocodone-acetaminophen 5-325 mg tablet See Rx Instructions PO Q6HP PRN (Reason: pain) Qty: 120 RF: 0 ibuprofen 600 mg tablet 600 mg PO TID Qty: 270 RF: 3 metformin 1,000 mg tablet 1,000 mg PO BID Qty: 180 RF: 1 metoprolol succinate 50 mg tablet extended release 24 hr 50 mg PO BID Qty: 180 RF: 1 albuterol sulfate [Ventolin HFA] 90 mcg/actuation HFA aerosol inhaler 1 inhalation inhalation Q4H Qty: 8 RF: 1 nitroglycerin 0.3 mg tablet, sublingual 0.3 mg SL Q5-15M PRN (Reason: chest pain) Qty: 30 RF: 11 clobetasol 0.05 % solution 0.05 % Topical QWEEK Qty: 50 RF: 3 lisinopril 2.5 mg tablet 2.5 mg PO DAILY Qty: 90 RF: 0 topiramate 25 mg tablet 25 mg PO QDAY Qty: 30 RF: 0 citalopram 20 mg tablet 40 mg PO QDAY Qty: 60 RF: 0 rizatriptan 5 mg tablet,disintegrating 5 mg PO ONCE PRN (Reason: migraine headache) Qty: 10 RF: 0 loratadine [Claritin] 10 mg tablet 10 mg PO QDAY PRN (Reason: allergies) RF: 0 cyclobenzaprine 5 mg tablet 5 mg PO TID PRN (Reason: muscle spasms) RF: 0 Referrals: Shadia Maguire DO [Primary Care Provider] -
[2019-09-05 05:39] VITALS: BP 178/85; PULSE 71; RESP 17; O2SAT 97
[2019-09-05 08:58] VITALS: BP 144/63; PULSE 84; RESP 19; O2SAT 98
== END 2019-09-05 09:11 | disposition home or self-care (01) ==
PROVIDERS: Emergency Provider Emergency Medicine; Family Provider Family Medicine; PCP Family Medicine
DX: G43.909 Migraine, unspecified, not intractable, without status migrainosus (principal); R42 Dizziness and giddiness; R11.2 Nausea with vomiting, unspecified
CPT/HCPCS: 70450; 70496; 70498; 80053; 81003; 85025; 85651; 86140; 96374; 96375; 96376; 99283; 99284; J1200; J1885; J2765; J2930; Q9967

== ENCOUNTER → 2019-09-08 15:03 | Outpatient (CLI) | payer MEDICARE, OTHER, SELFPAY ==
[2019-09-08 16:11] LABS: BUN Creatinine Ratio 24.3 (6-22); Blood Urea Nitrogen 17 mg/dL (7-17); Carbon Dioxide 25 mmol/L (22-32); Chloride 101 mmol/L (98-107); Estimated Glomerular Filt Rate > 60.0 mL/min (>60); Glucose 141 mg/dL (70-100); HEMOLYSIS < 15 (0-50); Potassium 3.5 mmol/L (3.4-5.1); Sodium 137 mmol/L (137-145)
[2019-09-08 16:18] LABS: Hemoglobin A1C% w Est Avg Glu 6.1 % (4.0-6.0)
== END ==
PROVIDERS: Family Provider Family Medicine; PCP Family Medicine; Referring Provider Family Medicine; Visit Provider Family Medicine
DX: E11.9 Type 2 diabetes mellitus without complications (principal); E66.01 Morbid (severe) obesity due to excess calories
CPT/HCPCS: 36415; 80048; 83036

== ENCOUNTER → 2020-04-19 16:10 | Outpatient (CLI) | payer MEDICARE, OTHER, SELFPAY ==
[2020-04-20 08:51] LABS: COVID19 Sendout Not Detected (Not Detect)
== END ==
PROVIDERS: Family Provider Family Medicine; PCP Family Medicine; Visit Provider Physician Assistant
DX: Z11.59 Encounter for screening for other viral diseases (principal)
CPT/HCPCS: 87635

== ENCOUNTER → 2020-05-21 11:36 | Outpatient (CLI) | payer MEDICARE, OTHER, SELFPAY ==
[2020-05-21 12:22] LABS: Add Manual Diff / Slide Review NO; Basophils Absolute Auto 100 /uL (0-100); Eosinophils Absolute Auto 500 /uL (0-450); Eosinophils Percent Auto 6.9 % (2-4); Hematocrit 38.3 % (36-46); Hemoglobin 12.5 g/dL (12.0-16.0); Lymphocytes Absolute Auto 2500 /uL (1100-4500); Lymphocytes Percent Auto 34.5 % (25-40); Mean Corpuscular HGB Conc 32.6 % (30-36); Mean Corpuscular Hemoglobin 27.3 PG (26-34); Mean Corpuscular Volume 83.8 fL (80-100); Monocytes Absolute Auto 400 /uL (0-900); Monocytes Percent Auto 5.4 % (3-14); Neutrophils Absolute Auto 3700 /uL (1500-7000); Neutrophils Percent Auto 52.2 % (50-75); Platelet Count 310 X10^3/uL (150-400); Red Blood Cell Count 4.57 X10^6/uL (4.0-5.2); Red Cell Distribution Width 14.3 % (11.6-14.8); White Blood Cell Count 7.1 X10^3/uL (4.5-11.0)
[2020-05-21 12:40] LABS: Hemoglobin A1C% w Est Avg Glu 5.9 % (4.0-6.0)
[2020-05-21 12:59] LABS: Alanine Aminotransferase 12 IU/L (<35); Albumin 4.2 g/dL (3.5-5.0); Albumin Globulin Ratio 1.6 (1.0-2.8); Alkaline Phosphatase 66 U/L (38-126); Aspartate Aminotransferase 16 IU/L (14-36); BUN Creatinine Ratio 21.3 (6-22); Bilirubin Total 0.5 mg/dL (0.2-1.3); Blood Urea Nitrogen 13 mg/dL (7-17); Calcium 9.3 mg/dL (8.4-10.2); Carbon Dioxide 29 mmol/L (22-32); Chloride 104 mmol/L (98-107); Cholesterol 237 mg/dL (140-199); Estimated Glomerular Filt Rate > 60.0 mL/min (>60); Globulin 2.6 g/dL (1.7-4.1); Glucose 93 mg/dL (70-100); HDL Cholesterol 44 mg/dL (40-60); HEMOLYSIS < 15 (0-50); LDL Cholesterol Calculated 139 mg/dL (<100); Potassium 4.4 mmol/L (3.4-5.1); Sodium 138 mmol/L (137-145); Total Protein 6.8 g/dL (6.3-8.2); Triglycerides 272 mg/dL (35-150)
== END ==
PROVIDERS: Family Provider Family Medicine; PCP Family Medicine; Referring Provider Family Medicine; Visit Provider Family Medicine
DX: E11.9 Type 2 diabetes mellitus without complications (principal); E66.01 Morbid (severe) obesity due to excess calories; E78.5 Hyperlipidemia, unspecified; F32.9 Major depressive disorder, single episode, unspecified; I10 Essential (primary) hypertension; M32.9 Systemic lupus erythematosus, unspecified
CPT/HCPCS: 36415; 80053; 80061; 83036; 85025

== ENCOUNTER → 2020-06-17 14:40 | Outpatient (CLI) | payer MEDICARE, OTHER, SELFPAY ==
[2020-06-17 15:18] LABS: COVID19 -Nasal RAPID Negative (Negative)
== END ==
PROVIDERS: Family Provider Family Medicine; PCP Family Medicine; Visit Provider Physician Assistant
DX: Z11.59 Encounter for screening for other viral diseases (principal)
CPT/HCPCS: 87635

== ENCOUNTER → 2021-06-26 10:02 | Outpatient (CLI) | payer MEDICARE, OTHER, SELFPAY ==
[2021-06-26 11:20] LABS: Add Manual Diff / Slide Review NO; Basophils Absolute Auto 100 /uL (0-100); Basophils Percent Auto 1.4 % (0-2); Eosinophils Absolute Auto 500 /uL (0-450); Eosinophils Percent Auto 6.4 % (2-4); Hematocrit 39.1 % (36-46); Hemoglobin 12.7 g/dL (12.0-16.0); Lymphocytes Absolute Auto 2600 /uL (1100-4500); Mean Corpuscular HGB Conc 32.4 % (30-36); Mean Corpuscular Volume 83.5 fL (80-100); Monocytes Absolute Auto 500 /uL (0-900); Monocytes Percent Auto 6.1 % (3-14); Neutrophils Absolute Auto 4500 /uL (1500-7000); Neutrophils Percent Auto 54.1 % (50-75); Platelet Count 312 X10^3/uL (150-400); Red Blood Cell Count 4.68 X10^6/uL (4.0-5.2); Red Cell Distribution Width 14.3 % (11.6-14.8); White Blood Cell Count 8.3 X10^3/uL (4.5-11.0)
[2021-06-26 11:30] LABS: Hemoglobin A1C% w Est Avg Glu 5.7 % (4.0-6.0)
[2021-06-26 12:17] LABS: Alanine Aminotransferase 17 IU/L (<35); Albumin 4.3 g/dL (3.5-5.0); Albumin Globulin Ratio 1.7 (1.0-2.8); Alkaline Phosphatase 64 U/L (38-126); Aspartate Aminotransferase 20 IU/L (14-36); BUN Creatinine Ratio 26.2 (6-22); Bilirubin Total 0.5 mg/dL (0.2-1.3); Blood Urea Nitrogen 17 mg/dL (7-17); Calcium 9.2 mg/dL (8.4-10.2); Carbon Dioxide 25 mmol/L (22-32); Chloride 101 mmol/L (98-107); Estimated Glomerular Filt Rate > 60.0 mL/min (>60); Globulin 2.5 g/dL (1.7-4.1); Glucose 126 mg/dL (70-100); HEMOLYSIS < 15 (0-50); Sodium 137 mmol/L (137-145); Total Protein 6.8 g/dL (6.3-8.2); Vitamin D 25 Hydroxy (D3) 34.7 ng/mL (30.0-100.0)
[2021-06-26 12:38] LABS: TSH w/ Reflex to FT4 1.83 uIU/mL (0.47-4.68)
[2021-06-26 12:59] LABS: Vitamin B12 164 pg/mL (239-931)
[2021-06-26 16:15] LABS: Creatinine Urine Random 196.9 mg/dL
[2021-06-26 16:18] LABS: Microalbumi Creatinin Ratio Ur 11.1 ug/mg CR (<30); Microalbumin Urine Random 2.2 mg/dL (0-1.6)
== END ==
PROVIDERS: Family Provider Family Medicine; PCP Family Medicine; Referring Provider Family Medicine; Visit Provider Family Medicine
DX: E53.9 Vitamin B deficiency, unspecified (principal); E11.9 Type 2 diabetes mellitus without complications; M85.80 Other specified disorders of bone density and structure, unspecified site; E66.01 Morbid (severe) obesity due to excess calories; I10 Essential (primary) hypertension; Z78.0 Asymptomatic menopausal state
CPT/HCPCS: 36415; 80053; 82043; 82306; 82570; 82607; 83036; 84443; 85025

== ENCOUNTER → 2021-07-17 13:36 | Outpatient (CLI) | payer MEDICARE, OTHER, SELFPAY ==
[2021-07-17 14:38] LABS: COVID19 -Nasal RAPID POSITIVE (Negative)
== END ==
PROVIDERS: Family Provider Family Medicine; PCP Family Medicine; Referring Provider Nurse Practitioner Family; Visit Provider Nurse Practitioner Family
DX: Z20.822 Contact with and (suspected) exposure to COVID-19 (principal); R10.9 Unspecified abdominal pain
CPT/HCPCS: 87086; 87635

== ENCOUNTER → 2021-08-02 13:03 | Outpatient (CLI) | payer MEDICARE, OTHER, SELFPAY ==
--- NOTE | 2021-08-02 13:05 | DI.RAD.S_ITS ---
PROCEDURE: XR CHEST 2V INDICATIONS: cough, wheeze, pneumonia? TECHNIQUE: 2 views of the chest were acquired. COMPARISON: [facility], CR, XR CHEST 2V, 04/16/2018, 8:59. FINDINGS: Surgical changes and devices: None. Lungs and pleura: Lungs are clear. No pleural effusions or pneumothorax. Mediastinum: Mediastinal contours are normal. Heart size is normal. Bones and chest wall: No suspicious bony abnormalities. Soft tissues appear unremarkable. IMPRESSION: No acute cardiopulmonary pathology. Dictated by: Steve Guillen M.D. on 08/02/2021 at 13:30 Approved by: Steve Guillen M.D. on 08/02/2021 at 13:30
[2021-08-02 14:33] LABS: Add Manual Diff / Slide Review NO; Basophils Absolute Auto 100 /uL (0-100); Basophils Percent Auto 1.3 % (0-2); Eosinophils Absolute Auto 400 /uL (0-450); Eosinophils Percent Auto 5.6 % (2-4); Hematocrit 38.7 % (36-46); Hemoglobin 12.8 g/dL (12.0-16.0); Lymphocytes Absolute Auto 3100 /uL (1100-4500); Lymphocytes Percent Auto 39.4 % (25-40); Mean Corpuscular Hemoglobin 27.2 PG (26-34); Mean Corpuscular Volume 82.2 fL (80-100); Monocytes Absolute Auto 600 /uL (0-900); Monocytes Percent Auto 7.1 % (3-14); Neutrophils Absolute Auto 3600 /uL (1500-7000); Neutrophils Percent Auto 46.6 % (50-75); Platelet Count 376 X10^3/uL (150-400); Red Cell Distribution Width 14.6 % (11.6-14.8); White Blood Cell Count 7.8 X10^3/uL (4.5-11.0)
[2021-08-02 15:12] LABS: Alanine Aminotransferase 15 IU/L (<35); Albumin 4.2 g/dL (3.5-5.0); Albumin Globulin Ratio 1.5 (1.0-2.8); Alkaline Phosphatase 69 U/L (38-126); Aspartate Aminotransferase 16 IU/L (14-36); BUN Creatinine Ratio 22.4 (6-22); Bilirubin Total 0.4 mg/dL (0.2-1.3); Blood Urea Nitrogen 15 mg/dL (7-17); Calcium 9.4 mg/dL (8.4-10.2); Carbon Dioxide 26 mmol/L (22-32); Chloride 102 mmol/L (98-107); Estimated Glomerular Filt Rate > 60.0 mL/min (>60); Globulin 2.8 g/dL (1.7-4.1); Glucose 95 mg/dL (70-100); HEMOLYSIS < 15 (0-50); Potassium 4.6 mmol/L (3.4-5.1); Sodium 136 mmol/L (137-145)
[2021-08-02 15:19] LABS: Troponin I < 0.012 ng/mL (0.01-0.034)
== END ==
PROVIDERS: Family Provider Family Medicine; PCP Family Medicine; Referring Provider Family Medicine; Visit Provider Family Medicine
DX: R05.9 Cough, unspecified (principal); R09.89 Other specified symptoms and signs involving the circulatory and respiratory systems; Z86.16 Personal history of COVID-19
CPT/HCPCS: 36415; 71046; 80053; 84484; 85025

== ENCOUNTER → 2021-12-30 12:37 | Outpatient (CLI) | payer MEDICARE, OTHER, SELFPAY ==
[2021-12-30 13:31] LABS: Add Manual Diff / Slide Review NO; Basophils Absolute Auto 100 /uL (0-100); Basophils Percent Auto 0.7 % (0-2); Eosinophils Absolute Auto 500 /uL (0-450); Hematocrit 39.4 % (36-46); Hemoglobin 12.7 g/dL (12.0-16.0); Lymphocytes Absolute Auto 3100 /uL (1100-4500); Lymphocytes Percent Auto 25.2 % (25-40); Mean Corpuscular HGB Conc 32.2 % (30-36); Mean Corpuscular Hemoglobin 26.6 PG (26-34); Mean Corpuscular Volume 82.8 fL (80-100); Monocytes Absolute Auto 700 /uL (0-900); Monocytes Percent Auto 5.8 % (3-14); Neutrophils Absolute Auto 7900 /uL (1500-7000); Neutrophils Percent Auto 64.3 % (50-75); Platelet Count 321 X10^3/uL (150-400); Red Blood Cell Count 4.76 X10^6/uL (4.0-5.2); Red Cell Distribution Width 14.7 % (11.6-14.8); White Blood Cell Count 12.2 X10^3/uL (4.5-11.0)
[2021-12-30 13:45] LABS: Alanine Aminotransferase 13 IU/L (<35); Albumin 4.1 g/dL (3.5-5.0); Albumin Globulin Ratio 1.4 (1.0-2.8); Alkaline Phosphatase 59 U/L (38-126); Aspartate Aminotransferase 17 IU/L (14-36); BUN Creatinine Ratio 29.8 (6-22); Bilirubin Total 0.3 mg/dL (0.2-1.3); Blood Urea Nitrogen 17 mg/dL (7-17); Calcium 8.9 mg/dL (8.4-10.2); Carbon Dioxide 26 mmol/L (22-32); Chloride 103 mmol/L (98-107); Estimated Glomerular Filt Rate > 60 mL/min (>60); Globulin 2.9 g/dL (1.7-4.1); Glucose 133 mg/dL (70-100); HEMOLYSIS < 15 (0-50); Sodium 136 mmol/L (137-145)
[2021-12-30 13:49] LABS: Erythrocyte Sedimentation Rate 11 MM/HR (0-20)
[2021-12-30 13:51] LABS: Hemoglobin A1C% w Est Avg Glu 6.3 % (4.0-6.0)
[2021-12-30 15:11] LABS: Vitamin D 25 Hydroxy (D3) 31.3 ng/mL (30.0-100.0)
[2021-12-31 07:36] LABS: Complement C3 152 mg/dL (82-167)
[2022-01-01 18:43] LABS: ANA Screen, IFA Positive (.)
== END ==
PROVIDERS: Family Provider Family Medicine; PCP Pediatrics; Referring Provider Family Medicine; Visit Provider Family Medicine
DX: M32.8 Other forms of systemic lupus erythematosus (principal); E55.9 Vitamin D deficiency, unspecified; E13.3 Other specified diabetes mellitus with ophthalmic complications; M32.9 Systemic lupus erythematosus, unspecified
CPT/HCPCS: 36415; 80053; 82306; 83036; 85025; 85651; 86038; 86160

== ENCOUNTER 2022-09-23 08:36 | Emergency (ER) | payer MEDICARE, OTHER, SELFPAY ==
--- NOTE | 2022-09-23 08:52 | DI.RAD.S_ITS ---
PROCEDURE: XR CHEST 2V INDICATIONS: pneumonia getting worse TECHNIQUE: 2 views of the chest were acquired. COMPARISON: [facility], PHILLIP, XR CHEST 2V, 08/02/2021, 14:14. [facility], CR, XR CHEST 2V, 04/16/2018, 8:59. FINDINGS: Surgical changes and devices: None. Lungs and pleura: Lungs are clear. No pleural effusions or pneumothorax. Mediastinum: Mediastinal contours are normal. Heart size is normal. Bones and chest wall: No suspicious bony abnormalities. Soft tissues appear unremarkable. IMPRESSION: No acute cardiopulmonary process. Dictated by: Drew Cramer M.D. on 09/23/2022 at 9:15 Approved by: Drew Cramer M.D. on 09/23/2022 at 9:17
[2022-09-23 08:53] VITALS: BP 173/74; PULSE 83; RESP 19; TEMP 36.6; O2SAT 99
--- NOTE | 2022-09-23 09:15 | ED.URI ---
HPI - URI/Sore Throat General Chief Complaint: Upper Respiratory Symptoms Stated Complaint: T-6 pneoumina not getting better Time Seen by Provider: 09/23/22 09:06 Source: patient Mode of arrival: Family Vehicle History of Present Illness HPI Narrative: Patient brought here by spouse from home for complaints of cough. Patient just finished Zithromax and cefdinir. Seen at walk-in clinic 6 days ago. Prescribed inhaler and prednisone and these 2 antibiotics. Patient states she is feeling better but continues to have a cough. She states she has lupus. Has been doing well this. However, they were traveling earlier this month in [facility] by the [place]. She did mention that they encountered a lot of homeless population and were around a lot of sick people. She never had tuberculosis before. After her return from her visit. She did have night sweats and hemoptysis. However she states her antibiotics have made her feel a lot better. She states hemoptysis was blood tinged sputum. No dahiana bright red blood coughing. No viral swab were done 6 days ago. She was treated clinically for pneumonia. Again, she states she feels much better. No dyspnea. No hemoptysis no night sweats. She does have a family doctor to follow up with. Reviewed with her TB testing can be done through primary care. Related Data Home Medications Medication Instructions Recorded Confirmed Respironics Dreamstation CPAP #1 ea 02/07/19 09/17/22 golimumab 50 mg/0.5 mL 50 mg SUBCUT QMONTH 06/04/20 09/17/22 subcutaneous pen injector (Simponi) methotrexate sodium (PF) 25 mg/mL 25 mg SUBCUT QWEEK 12/31/20 09/17/22 injection solution certolizumab pegol 400 mg/2 mL 200 mg SUBCUT Q2W 10/07/21 09/17/22 (200 mg/mL x2) subcutaneous syringe kit (Cimzia Starter Kit) Previous Rx's Medication Instructions Recorded Lancets 0 dev SEE INSTRUCTIONS ##100 07/30/17 Disabled Parking Permit ea ##1 08/07/17 Glucose: Test Strips 0 str SEE INSTRUCTIONS ##100 09/17/17 CPAP Supplies #1 ea 02/11/18 cpap & Supplies #1 ea 12/03/18 loratadine 10 mg tablet (Claritin) 10 mg PO QDAY PRN allergies #90 02/15/20 tabs blood-glucose meter #1 ea 06/18/21 cyclobenzaprine 5 mg tablet 5 mg PO TID PRN muscle spasms #270 11/04/21 tabs alprazolam 0.25 mg tablet 0.25 mg PO TID PRN anxiety #10 tabs 03/24/22 gabapentin 100 mg capsule 200 mg PO TID #720 caps 04/01/22 ergocalciferol (vitamin D2) 1,250 See Rx Instructions .Route 04/04/22 mcg (50,000 unit) capsule .COMPLEX #12 caps hydrocodone 5 mg-acetaminophen 325 1 tab PO Q6H PRN severe pain #120 04/29/22 mg tablet tabs ibuprofen 600 mg tablet See Rx Instructions .Route 04/29/22 .COMPLEX #270 tabs buspirone 5 mg tablet 5 mg PO TID #270 tabs 05/08/22 clobetasol 0.05 % topical cream 1 applic topical BEDTIME #60 grams 05/08/22 duloxetine 60 mg capsule,delayed 120 mg PO DAILY #180 caps 05/08/22 release esomeprazole magnesium 40 mg 40 mg PO QDAY@0600 #90 caps 05/08/22 capsule,delayed release (Nexium) metoprolol succinate 50 mg See Rx Instructions .Route 05/08/22 tablet,extended release 24 hr .COMPLEX #180 tabs rizatriptan 5 mg disintegrating 5 mg PO ONCE PRN migraine headache 05/08/22 tablet #10 tabs metformin 1,000 mg tablet See Rx Instructions .Route 05/16/22 .COMPLEX #180 tabs albuterol sulfate 90 mcg/actuation 2 puff inhalation Q6H PRN 06/23/22 aerosol inhaler shortness of breath or wheezing #6.7 grams clobetasol 0.05 % scalp solution See Rx Instructions .Route 07/18/22 .COMPLEX #200 mL topiramate 50 mg tablet 50 mg PO DAILY #90 tabs 07/18/22 lisinopril 5 mg tablet 5 mg PO DAILY #90 tabs 08/29/22 albuterol sulfate 90 mcg/actuation 2 puff inhalation Q4-6H PRN 09/17/22 aerosol inhaler shortness of breath or wheezing #8.5 grams azithromycin 250 mg tablet See Rx Instructions PO .COMPLEX #6 09/17/22 tabs inhalational spacing device #1 ea 09/17/22 (BreatheRite MDI Spacer) prednisone 50 mg tablet 50 mg PO DAILY #5 tabs 09/17/22 benzonatate 100 mg capsule 100 mg PO TID PRN cough #20 caps 09/23/22 Allergies Allergy/AdvReac Type Severity Reaction Status Date / Time codeine [CODEINE] Allergy Mild Rash Verified 09/17/22 14:53 CAT SCAN DYE Allergy Severe ANAPHYLAXIS, Uncoded 09/17/22 14:53 OK IF BENADRYL FIRST Pain Contract Allergy Unknown Uncoded 09/17/22 14:53 Review of Systems Review of Systems Narrative: GENERAL: negative chills, fatigue, malaise, fever, sweats. HEENT: negative sinus pain, ear pain, sore throat RESPIRATORY: negative dyspnea, positive cough CARDIOVASCULAR: negative chest pain, palpitations GASTROINTESTINAL: negative nausea, vomiting, abdominal pain : negative dysuria, frequency, hematuria MUSCULOSKELETAL: negative muscle or bony pain SKIN: negative rash, skin lesions NEUROLOGIC: negative weakness, numbness ROS Unobtainable: All systems reviewed & are unremarkable except as noted in HPI and below Patient History Medical History Fibromyalgia Hyperlipidemia Hypertension Lupus Morbid obesity Retinal tear (2014) Retinopathy due to secondary diabetes mellitus, with macular edema, with mild nonproliferative retinopathy Rheumatoid arthritis Sinusitis Surgical History History of ankle surgery History of bilateral salpingo-oophorectomy (BSO) History of knee replacement History of sinus surgery S/P skin biopsy Status post cholecystectomy Status post colonoscopy (09/29/07) Status post hernia repair Status post hysterectomy Social History household members: spouse Smoking Status: Never smoker Smoking Status: Never smoker alcohol intake frequency: 0-2 drinks per day Substance Use Type: does not use Exam Narrative Exam Narrative: GENERAL: in no distress, not toxic not dyspneic HEAD: Normocephalic. EYES: Pupils equal round ENT: Mucous membranes moist. NECK: Trachea midline. CARDIOVASCULAR: Regular rate and rhythm without murmurs RESPIRATORY: Clear to auscultation. Breath sounds equal bilaterally. No wheezes, rales, or rhonchi. Speaking full sentences. No respiratory distress. GASTROINTESTINAL: Abdomen soft, non-tender EXTREMITIES: No gross deformities. BACK: No flank tenderness. NEURO: AOx4. SKIN: Warm and dry PSYCH: Not anxious, is cooperative Initial Vital Signs Initial Vital Signs: Vital Signs Temperature 97.9 F 09/23/22 08:53 Pulse Rate 83 09/23/22 08:53 Respiratory Rate 19 09/23/22 08:53 Blood Pressure 173/74 H 09/23/22 08:53 Pulse Oximetry 99 09/23/22 08:53 Oxygen Delivery Method 09/23/22 08:53 Course Orders Ordered: ED Orders 09/23/22 08:52 CXR [XR chest 2V] Stat 09/23/22 09:18 Respiratory Panel (Film Array) Stat Discontinued Medications Benzonatate (Benzonatate 100 Mg Capsule) 100 mg PO NOW ONE Stop: 09/23/22 09:15 Last Admin: 09/23/22 09:25 Dose: 100 mg Documented By: HARJIT Vital Signs Vital signs: Vital Signs - 8 hr 09/23/22 08:53 09/23/22 09:51 Temperature 97.9 F Pulse Rate 83 89 Respiratory Rate 19 20 Blood Pressure 173/74 H 184/82 H Pulse Oximetry 99 97 Oxygen Delivery Method Room Air Room Air MDM - URI/Sore Throat Lab Data Labs: Lab Results 09/23/22 Range/Units 09:18 Chlamy pneumoniae PCR Not detected (Not Detect) Adenovirus (PCR) Not detected (Not Detect) B. pertussis DNA (PCR) Not detected (Not Detecte) B.parapertussis DNA PCR Not detected (Not Detecte) Coronavirus OC43 (PCR) Not detected (Not Detect) Coronavirus HKU1 (PCR) Not detected (Not Detect) Coronavirus 229E (PCR) Not detected (Not Detect) SARS-CoV-2 (PCR) Not detected (Not Detecte) Coronavirus NL63 (PCR) Not detected (Not Detect) Human Metapneumovir PCR Not detected (Not Detect) Influenza Type A (PCR) Not detected (Not Detect) Influenza Type B (PCR) Not detected (Not Detect) M. pneumoniae (PCR) Not detected (Not Detect) Parainfluenza 1 (PCR) Not detected (Not Detect) Parainfluenza 2 (PCR) Not detected (Not Detect) Parainfluenza 3 (PCR) Not detected (Not Detect) Parainfluenza 4 (PCR) Not detected (Not Detect) RSV (PCR) Not detected (Not Detect) Entero/Rhino (PCR) Not detected (Not Detect) Imaging Data Chest x-ray: Radiologist's Impression: [facility] [place] [address] [id number] ReportSigned Patient: Shawnee Griggs [facility]#: [id number]: 1960Acct:[id number]/Sex: 61 / FDate of Service: 09/23/22Loc: EDAccession Number: [id number] Procedure: XR chest 2V Ordering Provider: Sky Turk MD PROCEDURE: XR CHEST 2V INDICATIONS: pneumonia getting worse TECHNIQUE: 2 views of the chest were acquired. COMPARISON: [facility], CR, XR CHEST 2V, 08/02/2021, 14:14. [facility], CR, XR CHEST 2V, 04/16/2018, 8:59. FINDINGS: Surgical changes and devices: None. Lungs and pleura: Lungs are clear. No pleural effusions or pneumothorax. Mediastinum: Mediastinal contours are normal. Heart size is normal. Bones and chest wall: No suspicious bony abnormalities. Soft tissues appear unremarkable. IMPRESSION: No acute cardiopulmonary process. Dictated by: Drew Cramer M.D. on 09/23/2022 at 9:15 Approved by: Drew Cramer M.D. on 09/23/2022 at 9:17 MDM Narrative Medical decision making narrative: Patient brought here by spouse from home for complaints of cough. Patient just finished Zithromax and cefdinir. Seen at walk-in clinic 6 days ago. Prescribed inhaler and prednisone and these 2 antibiotics. Patient states she is feeling better but continues to have a cough. She states she has lupus. Has been doing well this. However, they were traveling earlier this month in [facility] [place] the [place]. She did mention that they encountered a lot of homeless population and were around a lot of sick people. She never had tuberculosis before. After her return from her visit. She did have night sweats and hemoptysis. However she states her antibiotics have made her feel a lot better. She states hemoptysis was blood tinged sputum. No dahiana bright red blood coughing. No viral swab were done 6 days ago. She was treated clinically for pneumonia. Again, she states she feels much better. No dyspnea. No hemoptysis no night sweats. She does have a family doctor to follow up with. Reviewed with her TB testing can be done through primary care. After history and exam chest x-ray Bob Up viral swab ordered [facility] CC: Cough Complicating co-morbidities: History of lupus Data collected from: Patient and partner Medical records reviewed: Walk-in clinic visit here 6 days ago Differential considered: Includes but not limited to pneumonia bronchitis tuberculosis viral infection Exam documented above, pertinent findings include: Clear equal lung sounds speaking full sentences Lab Test results independently reviewed as above. Pertinent findings: Viral swab negative Imaging studies independently reviewed: Chest x-ray no acute process Treatments: Tessalon Perle Re-evaluations: Reviewed results with patient and . Return precautions reviewed with her. No dyspnea. Cough improved with Tessalon Perles. She will follow up with her primary care for re-evaluation. Her concerns about tuberculosis she understands is done outpatient. We do not do them here. At this time clinically not tuberculosis. Exam and imaging laboratory studies are reassuring. She does not want to wait for viral swab results. They desire discharge home. Not toxic or dyspneic at time of discharge. Discussion: Appropriate for discharge home. Exam and imaging and laboratory studies are reassuring. Patient did not want to wait for viral swab results. Clinically not tuberculosis. Patient does have primary care to follow up with for further review and outpatient testing. Return precautions reviewed with patient. Likely extended symptoms of bronchitis with patient. She did improve however with antibiotics and does not require any further antibiotics or steroids. Patient has inhaler at home. I did prescribe her Tessalon Perles at helps for her cough. Not toxic at discharge Diagnosis: Acute bronchitis Discharge Plan Departure Patient Disposition: Home Clinical Impression: Bronchitis Instructions: DI for Acute Bronchitis Activity Restrictions/Additional Instructions: Please continue your inhaler 2 puffs every 4 hours as needed for cough. 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 Please see your family doctor this week for re-evaluation. Your concern for tuberculosis testing can be done through primary care. It is offered as a blood draw test/gold interferon or PPD test. Return if worse if any questions or concerns Prescriptions: New benzonatate 100 mg capsule 100 mg PO TID PRN (Reason: cough) Qty: 20 0RF No Action prednisone 50 mg tablet 50 mg PO DAILY Qty: 5 0RF albuterol sulfate 90 mcg/actuation HFA aerosol inhaler 2 puff inhalation Q4-6H PRN (Reason: shortness of breath or wheezing) Qty: 8.5 0RF (DME) BreatheRite MDI Spacer Spacer See Rx Instructions .Route Qty: 1 0RF Rx Instructions: As directed azithromycin 250 mg tablet See Rx Instructions PO .COMPLEX Qty: 6 0RF Rx Instructions: For 250 mg dose pack: take 500 mg today (day 1), then 250 mg for 4 days (days 2-5) PO Lancets 0 dev SEE INSTRUCTIONS Qty: 100 PRNRF Disabled Parking Permit Qty: 1 0RF Glucose: Test Strips 0 str SEE INSTRUCTIONS Qty: 100 PRNRF (DME) CPAP Supplies Qty: 1 3RF Dose Instruction: As directed Rx Instructions: Use as directed nightly with CPAP machine for JAIME. ([facility]) cpap & Supplies Qty: 1 0RF Dose Instruction: As directed Rx Instructions: CPAP therapy with 9cm using mask with heated humidifier ([facility]) Respironics Dreamstation CPAP Qty: 1 Dose Instruction: As directed Label Comments: Pressure: 8-14 cmH2O DME: [place] Rx Instructions: As directed loratadine [Claritin] 10 mg tablet 10 mg PO QDAY PRN (Reason: allergies) Qty: 90 3RF Hold Instructions: kaila ([facility]) blood-glucose meter Kit See Rx Instructions .ROUTE .MEDSUPPLY Qty: 1 0RF Rx Instructions: As directed cyclobenzaprine 5 mg tablet 5 mg PO TID PRN (Reason: muscle spasms) Qty: 270 0RF gabapentin 100 mg capsule 200 mg PO TID Qty: 720 3RF ergocalciferol (vitamin D2) 1,250 mcg (50,000 unit) capsule See Rx Instructions .ROUTE .COMPLEX Qty: 12 0RF Dose Instruction: TAKE ONE CAPSULE BY MOUTH EVERY WEEK Rx Instructions: TAKE ONE CAPSULE BY MOUTH EVERY WEEK ibuprofen 600 mg tablet See Rx Instructions .ROUTE .COMPLEX Qty: 270 0RF Dose Instruction: TAKE 1 TABLET THREE TIMES A DAY Rx Instructions: TAKE 1 TABLET THREE TIMES A DAY hydrocodone-acetaminophen 5-325 mg tablet 1 tab PO Q6H PRN (Reason: severe pain) Qty: 120 0RF buspirone 5 mg tablet 5 mg PO TID Qty: 270 0RF clobetasol 0.05 % cream 1 applic topical BEDTIME Qty: 60 1RF duloxetine 60 mg capsule,delayed release(DR/EC) 120 mg PO DAILY Qty: 180 1RF esomeprazole magnesium [Nexium] 40 mg capsule,delayed release(DR/EC) 40 mg PO QDAY@0600 Qty: 90 1RF metoprolol succinate 50 mg tablet extended release 24 hr See Rx Instructions .ROUTE .COMPLEX Qty: 180 1RF Dose Instruction: TAKE 1 TABLET TWICE A DAY Rx Instructions: TAKE 1 TABLET TWICE A DAY rizatriptan 5 mg tablet,disintegrating 5 mg PO ONCE PRN (Reason: migraine headache) Qty: 10 5RF Rx Instructions: may repeat once in >=2 hours metformin 1,000 mg tablet See Rx Instructions .ROUTE .COMPLEX Qty: 180 1RF Dose Instruction: TAKE 1 TABLET TWICE A DAY Rx Instructions: TAKE 1 TABLET TWICE A DAY albuterol sulfate 90 mcg/actuation HFA aerosol inhaler 2 puff inhalation Q6H PRN (Reason: shortness of breath or wheezing) Qty: 6.7 5RF clobetasol 0.05 % solution See Rx Instructions .ROUTE .COMPLEX Qty: 200 0RF Dose Instruction: APPLY TO THE AFFECTED AREA EVERY WEEK Rx Instructions: APPLY TO THE AFFECTED AREA EVERY WEEK topiramate 50 mg tablet 50 mg PO DAILY Qty: 90 0RF lisinopril 5 mg tablet 5 mg PO DAILY Qty: 90 0RF Rx Instructions: APPOINTMENT DUE FOR FURTHER REFILLS. 08/29/22 Simponi 50 mg/0.5 mL pen injector 50 mg SUBCUT QMONTH Hold Instructions: appealing with insurance Cimzia Starter Kit 400 mg/2 mL (200 mg/mL x 2) syringe kit 200 mg SUBCUT Q2W alprazolam 0.25 mg tablet 0.25 mg PO TID PRN (Reason: anxiety) Qty: 10 0RF methotrexate sodium (PF) 25 mg/mL solution 25 mg SUBCUT QWEEK Referrals: Rafael Suarez MD [Primary Care Provider] - Stand Alone Forms: Patient Portal/API
[2022-09-23] MEDS: BENZONATATE 100 MG CAPSULE PO (09:25)
[2022-09-23 09:51] VITALS: BP 184/82; PULSE 89; RESP 20; O2SAT 97
[2022-09-23 10:20] LABS: Adenovirus Not Detected (Not Detect); B. parapertussis Not Detected (Not Detecte); Bordetella pertussis Not Detected (Not Detecte); Chlamydophila pneumoniae Not Detected (Not Detect); Coronavirus 229E Not Detected (Not Detect); Coronavirus HKU1 Not Detected (Not Detect); Coronavirus NL 63 Not Detected (Not Detect); Coronavirus OC43 Not Detected (Not Detect); Human Metapneumovirus Not Detected (Not Detect); Human Rhinovirus/Enterovirus Not Detected (Not Detect); Influenza A Not Detected (Not Detect); Influenza B Not Detected (Not Detect); Mycoplasma pneumoniae Not Detected (Not Detect); Parainfluenza Virus 1 Not Detected (Not Detect); Parainfluenza Virus 2 Not Detected (Not Detect); Parainfluenza Virus 3 Not Detected (Not Detect); Parainfluenza Virus 4 Not Detected (Not Detect); Respiratory Syncytial Virus Not Detected (Not Detect); SARS- CoV-2 Not Detected (Not Detecte)
== END 2022-09-23 09:55 | disposition home or self-care (01) ==
PROVIDERS: Emergency Provider Emergency Medicine; Family Provider Family Medicine; PCP Pediatrics
DX: J20.9 Acute bronchitis, unspecified (principal); Z79.899 Other long term (current) drug therapy; Z20.822 Contact with and (suspected) exposure to COVID-19
CPT/HCPCS: 71046; 87633; 99283

== ENCOUNTER → 2022-11-24 16:07 | Outpatient (CLI) | payer MEDICARE, OTHER, SELFPAY ==
[2022-11-24 17:04] LABS: Hematocrit 40.1 % (36-46); Hemoglobin 13.1 g/dL (12.0-16.0); Mean Corpuscular HGB Conc 32.7 % (30-36); Mean Corpuscular Hemoglobin 26.8 PG (26-34); Mean Corpuscular Volume 81.9 fL (80-100); Platelet Count 411 X10^3/uL (150-400); Red Blood Cell Count 4.89 X10^6/uL (4.0-5.2); Red Cell Distribution Width 14.4 % (11.6-14.8); White Blood Cell Count 10.6 X10^3/uL (4.5-11.0)
[2022-11-24 17:08] LABS: HEMOLYSIS < 15 (0-50)
[2022-11-24 17:15] LABS: Alanine Aminotransferase 22 IU/L (<35); Albumin 4.2 g/dL (3.5-5.0); Albumin Globulin Ratio 1.3 (1.0-2.8); Alkaline Phosphatase 69 U/L (38-126); Aspartate Aminotransferase 20 IU/L (14-36); BUN Creatinine Ratio 22.9 (6-22); Bilirubin Total 0.4 mg/dL (0.2-1.3); Blood Urea Nitrogen 16 mg/dL (7-17); C-Reactive Protein Quant 0.6 mg/dL (<1.0); Calcium 8.9 mg/dL (8.4-10.2); Carbon Dioxide 26 mmol/L (22-32); Chloride 101 mmol/L (98-107); Cholesterol 269 mg/dL (140-199); Estimated Glomerular Filt Rate > 60 mL/min (>60); Globulin 3.2 g/dL (1.7-4.1); Glucose 95 mg/dL (70-100); HDL Cholesterol 42 mg/dL (40-60); LDL Cholesterol Calculated 149 mg/dL (<100); Sodium 136 mmol/L (137-145); Total Protein 7.4 g/dL (6.3-8.2); Triglycerides 391 mg/dL (35-150)
[2022-11-24 17:26] LABS: Erythrocyte Sedimentation Rate 7 MM/HR (0-20)
[2022-11-24 18:42] LABS: Creatinine Urine Random 117.2 mg/dL
[2022-11-24 18:47] LABS: Microalbumin Urine Random < 0.6 mg/dL (0-1.6)
[2022-11-25 16:13] LABS: Vitamin B12 230 pg/mL (239-931)
== END ==
PROVIDERS: Family Provider Family Medicine; PCP Internal Medicine; Referring Provider Internal Medicine; Visit Provider Internal Medicine
DX: E11.319 Type 2 diabetes mellitus with unspecified diabetic retinopathy without macular edema (principal); I25.10 Atherosclerotic heart disease of native coronary artery without angina pectoris; E78.2 Mixed hyperlipidemia; I10 Essential (primary) hypertension; M32.9 Systemic lupus erythematosus, unspecified; E53.8 Deficiency of other specified B group vitamins
CPT/HCPCS: 36415; 80053; 80061; 82043; 82570; 82607; 84443; 85027; 85651; 86140

== ENCOUNTER → 2023-04-03 16:54 | Outpatient (CLI) | payer MEDICARE, OTHER, SELFPAY ==
[2023-04-03 17:38] LABS: Influenza A - CEPHEID Flu A NEGATIVE (NEGATIVE); Influenza B - CEPHEID Flu B NEGATIVE (NEGATIVE); Respiratory Syncytial Virus Negative (Negative)
[2023-04-03 17:59] LABS: COVID-19 CEPHEID 4-PLEX PCR Negative (Negative)
== END ==
PROVIDERS: Family Provider Family Medicine; PCP Internal Medicine; Visit Provider Nurse Practitioner Family
DX: R05.1 Acute cough (principal); Z20.822 Contact with and (suspected) exposure to COVID-19
CPT/HCPCS: 0241U

== ENCOUNTER → 2023-06-20 15:23 | Outpatient (CLI) | payer MEDICARE, OTHER, SELFPAY ==
--- NOTE | 2023-06-20 15:28 | DI.RAD.S_ITS ---
PROCEDURE: XR CHEST 2V INDICATIONS: Bronchitis TECHNIQUE: 2 views of the chest were acquired. COMPARISON: [facility], CR, XR CHEST 2V, 09/23/2022, 8:51. [facility], CR, XR CHEST 2V, 08/02/2021, 14:14. [facility], CR, XR CHEST 1 VIEW, 03/01/2022, 21:20. FINDINGS: Surgical changes and devices: Cholecystectomy clips are seen. Lungs and pleura: An incomplete inspiratory result is noted, causing a crowded appearance to the lung markings. No focal infiltrates are seen. No pneumothorax or significant pleural effusions are seen. Mediastinum: Mediastinal contours are normal. Heart size is normal. Bones and chest wall: No suspicious bony abnormalities. Age-appropriate bony degenerative changes are seen. Soft tissues appear unremarkable. IMPRESSION: Low lung volumes, without an acute abnormality seen by plain film. No focal infiltrates are seen. Postoperative and degenerative changes are seen. Dictated by: Fredy Young M.D. on 06/20/2023 at 15:40 Approved by: Fredy Young M.D. on 06/20/2023 at 15:41
== END ==
PROVIDERS: Family Provider Family Medicine; PCP Internal Medicine; Referring Provider Physician Assistant; Visit Provider Physician Assistant
DX: J40 Bronchitis, not specified as acute or chronic (principal)
CPT/HCPCS: 71046